=== PATIENT | female | born 1985 | race Caucasian/White ===

== ENCOUNTER 2025-08-11 07:32 | Outpatient (AMB) | payer OTHER, SELFPAY ==
--- OUTSIDE RECORDS SUMMARY | 2025-08-11 07:34 | XMS_ITS | Clinical Summary ---
Author Organization [address] Address [address] [place] [phone] Phone Care Team Providers Care Test Hole Driller Name Role Phone Candi Galindo MD Primary Care Provider [phone] Allergies No known active allergies Medications cetirizine (ZyrTEC) 10 mg tablet Take 1 tablet by mouth daily for 360 days. 09/18/2021 Active Active Problems Problem Noted Date Diagnosed Date Prediabetes 09/18/2021 Allergic rhinitis 09/18/2021 Hyperlipidemia 12/05/2017 Encounters Date Type Department Care Team Description 05/21/2025 Lab Requisition [facility] - Main Lab [address] [facility] [place] [address] Gilmer Pimentel MD Encounter for gynecological examination (general) (routine) without abnormal findings from Last 3 Months Immunizations Name Administration Dates Next Due Influenza Quadravalent, MDCK , 0.5ml, preservative free (Flucelvax) 6mo and older 10/22/2023,09/18/2021,02/08/2021 Influenza trivalent, with pr eservative (Fluzone; Afluria) 6mo and older 08/28/2022 Moderna (age 6mo & older) Bi valent, COVID-19, 0.5 mL or 0.25 mL dosage 08/28/2022 Tdap Tetanus diptheria acell ular pertussis (Boostrix; Adacel) 7yo and older 02/08/2021 Surgical History Surgery Date Site/Laterality Comments HERNIA REPAIR PROCEDURE: MO REPAIR FIRST ABDOMINAL WALL HERNIA HYSTERECTOMY PROCEDURE: HISTORICAL HYSTERECTOMY SECTION 1998 and 2002 PROCEDURE: MO DELIVERY ONLY Medical History Medical History Date Comments Allergic rhinitis 09/18/2021 DX:Allergic rh initis Prediabetes 09/18/2021 DX:Prediabetes Family History Medical History Relation Name Comments Breast cancer Aunt great aunt, alanis malhotra in 30s Other: alive and well Father Cervical cancer Mother and HIV Diabetes Paternal Grandmother Brain cancer Sister Relation Name Status Comments Aunt Alive Daughter 1 Alive Daughter 2 Alive Father Alive Maternal Grandfather Alive Maternal Grandmother Mother Paternal Grandfather Alive Paternal Grandmother Sister Social History Tobacco Use Types Packs/Day Years Used Date Smoking Tobacco: Every Day Cigarettes 0.3 29.7 Started: 11/25/1995 Smokeless Tobacco: Never Alcohol Use Standard Drinks/Week Comments Yes 0 (1 standard drink = 0.6 oz pur e alcohol) Comments Unknown Sex and Gender Information Value Date Recorded Sex Assigned at Not on file Legal Sex Female 3:10 PM EST Gender Identity Not on file Sexual Orientation Not on file Obstetrics History Last Filed Vital Signs Vital Sign Reading Time Taken Comments Blood Pressure 108/70 11/20/2023 11:30 AM EST Pulse 72 11/20/2023 11:30 AM EST Temperature - - Respiratory Rate - - Oxygen Saturation - - Inhaled Oxygen Concentration - - Weight 84.4 kg (186 lb) 11/20/2023 11:30 AM EST Height 149.9 cm (4' 11 ) 11/20/2023 11:30 AM EST Body Mass Index 37.57 11/20/2023 11:30 AM EST Plan of Treatment Health Maintenance Due Date Last Done Comments Breast Cancer Screening 1983 Hepatitis B Vaccines (1 of 3 - 19+ 3-dose series) 2002 Pneumococcal Vaccine: Pediatrics (0 to 5 Years) and At-Risk Patients (6 to 49 Years) (1 of 2 - PCV) 2002 Hepatitis C Screening 10/24/2022 Social Influencers of Health Screening 10/24/2022 Depression Screening 11/25/2024 COVID-19 Vaccine (2024- season) 2025 08/28/2022, 02/14/2022, 09/18/2021 Influenza Vaccine (#1) 2025 , 08/28/2022, 09/18/2021, Additional history exists Cholesterol Screening (Lipid Panel) 07/15/2028 07/15/2023 Cervical Cancer Screening: HPV 05/20/2030 05/20/2025, 05/20/2025 DTaP,Tdap,and Td Vaccines (2 - Td or Tdap) 02/08/2031 02/08/2021 HIV Screening Completed 05/14/2022 HIB Vaccines Aged Out No longer eligi ble based on patient's age to complete this topic HPV Vaccines Aged Out No longer eligi ble based on patient's age to complete this topic Hepatitis A Vaccines Aged Out No long er eligible based on patient's age to complete this topic IPV Vaccines Aged Out No longer eligi ble based on patient's age to complete this topic MMR Vaccines Aged Out No longer eligi ble based on patient's age to complete this topic Meningococcal ACWY Vaccine Aged Out N o longer eligible based on patient's age to complete this topic Meningococcal B Vaccine Aged Out No l onger eligible based on patient's age to complete this topic RSV Immunization Patients Under 20 months Aged Out No longer eligible based on patient's age to complete this topic Varicella Vaccines Aged Out No longer eligible based on patient's age to complete this topic Procedures Procedure Name Priority Date/Time Associated Diagnosis Comments PAP SMEAR Routine 05/20/2025 12:00 PM EDT Encounter for gynecological examination (general) (routine) without abnormal findings HPV GENOTYPE Routine 05/20/2025 12:00 PM EDT Encounter for gynecological examination (general) (routine) without abnormal findings HPV WITH REFLEX GENOTYPE Routine 05/20/2025 12:00 PM EDT Encounter for gynecological examination (general) (routine) without abnormal findings LIPID PANEL Routine 07/15/2023 HM HIV SCREENING Routine 05/14/2022 from Last 3 Months or Most Recently Relevant to Health Maintenance Results * HPV genotype (05/20/2025 12:00 PM EDT) HPV Type 16 Negative Negative LAB MICROBIOLOGY METHOD 06/01/2025 1:57 PM EDT [facility] HPV Type 18/45 Negative Negative LAB MICROBIOLOGY METHOD 06/01/2025 1:57 PM EDT [facility] HPV Type 16,18, and others Valid LAB MICROBIOLOGY METHOD 06/01/2025 1:57 PM EDT [facility] Brushing/Spatula Cervix uteri structure / Unknown 05/20/2025 12:00 PM EDT 05/25/2025 1:41 PM EDT Gilmer Pimentel MD LAB MOLECULAR DIAGNOSTICS [place]EN [place] Final Result [facility] [address] [place] [address], [place] [phone] * (ABNORMAL) HPV with reflex genotype (05/20/2025 12:00 PM EDT) HPV Positive( A) Negative LAB MICROBIOLOGY METHOD 05/27/2025 5:23 PM EDT [facility] Brushing/Spatula Cervix uteri structure / Unknown 05/20/2025 12:00 PM EDT 05/25/2025 1:41 PM EDT Gilmer Pimentel MD LAB MOLECULAR DIAGNOSTICS [place] Final Result [facility] [address] [place] [address], [place] [phone] * (ABNORMAL) Pap smear (05/20/2025 12:00 PM EDT) Interpretation Atypical squamous cells of undetermined significance(A) 05/25/2025 1:41 PM EDT [facility] General Categorization Epithelial cell abnormality, see interpretation 05/25/2025 1:41 PM EDT [facility] Specimen Adequacy Satisfactory for evaluation, endocervical/tra nsformation zone component absent 05/25/2025 1:41 PM EDT [facility] Pap Methodology Liquid Based Pap Test 05/25/2025 1:41 PM EDT [facility] Disclaimer The Pap test is a screening test which carries an inherent false negative rate. These test results should be correlated with the patient's clinical findings and history. This Pap test was processed using an automated screening system. Technical cytopathology services provided by [facility], at [address] [place] [address] (CLIA # [id number]/George Marie MD, Contact Person.) 05/25/2025 1:41 PM EDT [facility] Console Pap Interpretation Reported 05/25/2025 1:41 PM EDT [facility] Brushing/Spatula Cervix uteri structure / Unknown 05/20/2025 12:00 PM EDT 05/21/2025 6:38 AM EDT Gilmer Pimentel MD LAB CYTOLOGY ORDERABLES Final Result [facility] [address] [place] [address], * (ABNORMAL) Lipid panel (07/15/2023) Pathologist [facility] LDL/HDL Ratio 7(A) 0 - 4 Triglycerides 356(A) 0 - 150 mg/dL Cholesterol 285(A) 0 - 200 mg/dL HDL 41 >=40 mg/dL LDL Cholesterol 173(A) 0 - 100 mg/dL Blood Venous blood specimen / Unknown Angeline Sherwood MD LAB BLOOD ORDERABLES Caroline l Result * Hm HIV Screening (05/14/2022) Pathologist [facility] HIV Screening abstracted Angeline Sherwood MD HEALTH MAINTENANCE Final Result from Last 3 Months or Most Recently Relevant to Health Maintenance Insurance [facility] [employer] PL[employer] Care Teams Test Hole Driller Relationship Specialty Start Date End Date Candi Galindo MD [address] [place] [phone] PCP - General Internal Medicine 08/18/21
--- OUTSIDE RECORDS SUMMARY | 2025-08-11 07:34 | XMS_ITS | Encounter Summary ---
Author Organization [facility] Address [address] [place] [address] Care Team Providers Care Assembler And Tester Electronics Name Role Phone Candi Galindo MD Primary Care Provider [phone] Encounter Details Date Type Department Care Team (Latest Contact Info) Description 05/21/[address] [facility] - Main Lab 299 [facility] [place] [phone] Gilmer Pimentel MD [address] [address] Encounter for gynecological examination (general) (routine) without abnormal findings Social History Tobacco Use Types Packs/Day Years [...] on file Sexual Orientation Not on file documented as of this encounter Plan of Treatment Not on file documented as of this encounter Procedures Procedure Name Priority Date/Time Associated Diagnosis Comments HPV GENOTYPE Routine 05/20/2025 12:00 PM EDT Encounter for gynecological examination (general) (routine) without abnormal findings HPV WITH REFLEX GENOTYPE Routine 05/20/2025 12:00 PM EDT Encounter for gynecological examination (general) (routine) without abnormal findings PAP SMEAR Routine 05/20/2025 12:00 PM EDT Encounter for gynecological examination (general) (routine) without abnormal findings documented in this encounter Results * HPV genotype (05/20/2025 12:00 PM EDT) HPV Type 16 Negative Negative LAB MICROBIOLOGY METHOD 06/01/2025 1:57 PM EDT [facility] HPV Type 18/45 Negative Negative LAB MICROBIOLOGY METHOD 06/01/2025 1:57 PM EDT [facility] HPV Type 16,18, and others Valid LAB MICROBIOLOGY METHOD 06/01/2025 1:57 PM EDT [facility] Brushing/Spatula Cervix uteri structure / Unknown 05/20/2025 12:00 PM EDT 05/25/2025 1:41 PM EDT us Gilmer Pimentel MD LAB MOLECULAR DIAGNOSTICS LEN [place]INTER[place] Final Result Performing Organization Address City/[facility]/ZIP Co de Phone Number [facility] [address] [place] [address], [place] [phone] * (ABNORMAL) HPV with reflex genotype (05/20/2025 12:00 PM EDT) HPV Positive( A) Negative LAB MICROBIOLOGY METHOD 05/27/2025 5:23 PM EDT [facility] Brushing/Spatula Cervix uteri structure / Unknown 05/20/2025 12:00 PM EDT 05/25/2025 1:41 PM EDT us Gilmer Pimentel MD LAB MOLECULAR DIAGNOSTICS LEN [place] Final Result [facility] [address] [place] [address], [place] [phone] * (ABNORMAL) Pap smear (05/20/2025 12:00 PM EDT) Interpretation Atypical squamous cells of undetermined significance(A) 05/25/2025 1:41 PM EDT [facility] General Categorization Epithelial cell abnormality, see interpretation 05/25/2025 1:41 PM EDT [facility] Specimen Adequacy Satisfactory for evaluation, endocervical/tra nsformation zone component absent 05/25/2025 1:41 PM EDT [facility] Pap Methodology Liquid Based Pap Test 05/25/2025 1:41 PM EDT [facility] Disclaimer The Pap test is a screening test which carries an inherent false negative rate. These test results should be correlated with the patient's clinical findings and history. This Pap test was processed using an automated screening system. Technical cytopathology services provided by [facility], at [address] [place] [address] (CLIA # [id number]/George Marie MD, Surgical Services Assistant.) 05/25/2025 1:41 PM EDT [facility] Console Pap Interpretation Reported 05/25/2025 1:41 PM EDT [facility] Brushing/Spatula Cervix uteri structure / Unknown 05/20/2025 12:00 PM EDT 05/21/2025 6:38 AM EDT us Gilmer Pimentel MD LAB CYTOLOGY ORDERABLES Final Result [facility] [address] [place] [address], documented in this encounter Visit Diagnoses Diagnosis Encounter for gynecological examination (general) (routine) without abnormal findings documented in this encounter Care Teams Assembler And Tester Electronics Relationship Specialty Start Date End Date Candi Galindo MD [address] [place] [address] PCP - General Internal Medicine 08/18/21 documented as of this encounter
--- OUTSIDE RECORDS SUMMARY | 2025-08-11 07:34 | XMS_ITS | Encounter Summary ---
Author Organization [facility] Address [address] [place] [address] Care Team Providers Care Form Grader Operator Name Role Phone Candi Galindo MD Primary Care Provider [phone] Encounter Details Date Type Department Care Team (Latest Contact Info) Description 05/03/2025 Lab Requisition [facility] - Main Lab [address] [facility] [place] [phone] Gilmer Pimentel MD 299 [facility] [address] [place] [phone] Encounter for screening for infections with a predominantly sexual mode of transmission; Acute vaginitis Social History Tobacco Use Types Packs/Day Years [...] Procedure Name Priority Date/Time Associated Diagnosis Comments VAGINITIS PATHOGENS BY PCR Routine 05/03/2025 12:00 AM EDT Encounter for screening for infections with a predominantly sexual mode of transmission Acute vaginitis CHLAMYDIA TRACHOMATIS AND NEISSERIA GONORRHOEAE PCR Routine 05/03/2025 12:00 AM EDT Encounter for screening for infections with a predominantly sexual mode of transmission Acute vaginitis documented in this encounter Results * (ABNORMAL) Vaginitis pathogens molecular study (05/03/2025 12:00 AM EDT) Trichomonas vaginalis Negative Negative 05/04/2025 9:30 AM EDT [facility] Gardnerella vaginalis Positive(A) Negative 05/04/2025 9:30 AM EDT [facility] Carissa Species Negative Negative 9:30 AM EDT [facility] Swab Vaginal structure / Unknown 05/03/2025 05/03/2025 6:10 PM EDT us Gilmer Pimentel MD LAB MICROBIOLOGY - GENERAL ORD ERABLES Final Result [facility] [address] [place] [address], [place] [phone] * Chlamydia trachomatis and Neisseria gonorrhoeae molecular study (05/03/2025 12:00 AM EDT) Neisseria gonorrhoeae PCR Negative Negative LAB MOLECULAR DIAGNOSTICS METHOD 05/04/2025 9:19 AM EDT [facility] Chlamydia trachomatis PCR Negative Negative LAB MOLECULAR DIAGNOSTICS METHOD 05/04/2025 9:19 AM EDT [facility] Swab Cervix uteri structure / Unknown 05/03/2025 05/03/2025 6:10 PM EDT us Gilmer Pimentel MD LAB MICROBIOLOGY - GENERAL ORD ERABLES Final Result [facility] [address] [place] [address], [place] [phone] documented in this encounter Visit Diagnoses Diagnosis Encounter for screening for infections with a predominantly sexual mode of transmission Acute vaginitis Unspecified vaginitis and vulvovaginitis documented in this encounter Care Teams Form Grader Operator Relationship Specialty Start Date End Date Candi Galindo MD [address] [place] [phone] PCP - General Internal Medicine 08/18/21 documented as of this encounter
--- OUTSIDE RECORDS SUMMARY | 2025-08-11 07:34 | XMS_ITS ---
Author Name [facility] Organization Unknown Care Team Organization Name Specialty Phone Email Start Date End Da [facility] Candi Galindo Primary Care 10/02/2022 4
[2025-08-11 07:37] VITALS: BP 128/78; PULSE 70; O2SAT 98; BMI 36.6
--- NOTE | 2025-08-11 07:37 | A.OFFPC_ITS ---
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 Accompanied by: Self / Same As Patient Allergies No Known Allergies Allergy (Verified 08/11/25 07:59) Medication List - Last Reconciled 08/11/25 by Margie Anderson MD atorvastatin (Lipitor) 40 mg PO DAILY coQ10 (ubiquinol) (Qunol Popeye CoQ10) 100 mg PO DAILY empagliflozin (Jardiance) 25 mg PO DAILY icosapent ethyl 2 grams PO BID thiamine HCl (vitamin B1) 100 mg PO BID Tobacco use date assessed: 08/11/25 Dental Screening Dental Screen Date: 08/11/25 Did you have a dental visit in the last 12 months?: Yes Did you have a dental problem in the last 6 months where you did not have access to dental care?: No Was dental information given to patient?: Patient has dentist HPI HPI Comments History of Present Illness Details The patient is a 39-year-old female presenting with the purpose of establishing care. She has a history of pure hypercholesterolemia, for which she is on atorvastatin 40 mg. Additionally, she has been diagnosed with fatty liver and is taking vitamin B1 as part of her management plan. The patient also has impaired glucose tolerance and is currently on Jardiance 25 mg. She has polycystic ovarian syndrome, and her ovarian cysts are monitored by her juvenile detention officer. She underwent a hysterectomy, which is part of her medical history. In terms of preventative care, she had a colonoscopy last year, which returned normal results. She also had a mammogram this year, which showed dense breast tissue, and she is scheduled for a follow-up ultrasound. The patient is obese with a BMI of 36.6 and has a history of low vitamin D levels, which will be checked during her upcoming labs. She smokes approximately six cigarettes a day and has an appointment with weight management to address her obesity. [facility] Surgical History (Updated 08/11/25 @ 08:09 by Margie Anderson MD) H/O midurethral sling procedure H/O colonoscopy H/O LEEP History of total abdominal hysterectomy Previous section H/O hernia repair Family History Father Hyperlipidemia Mother HIV (human immunodeficiency virus infection) Diabetes Daughter No problems noted. Daughter No problems noted. Son No problems noted. 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 1. Little interest or pleasure in doing things: not at all 2. Feeling down, depressed, or hopeless: not at all 3. Trouble falling or staying asleep, or sleeping too much: not at all 4. Feeling tired or having little energy: not at all 5. Poor appetite or overeating: not at all 6. Feeling bad about yourself - or that you are a failure or have let yourself or your family down: not at all 7. Trouble concentrating on things, such as reading the newspaper or watching television: not at all 8. Moving or speaking so slowly that other people could have noticed. Or the opposite - being so fidgety or restless that you have been moving around a lot more than usual: not at all 9. Thoughts that you would be better off or of hurting yourself in some way: not at all Total score: 0 Depression Screening Interpretation: Negative Depression Screening Done: Yes 64849 - PHQ-9 Billing: Yes Source: Developed by Drs. Constantino Cazares, Merary Renteria, Moshe Oreilly and colleagues, with an educational chalo from [employer]. Thrive Questionnaire Date Thrive assessed: 08/11/25 I am a: Patient What is your living situation today?: I have a steady place to live Within the past 12 months, did the food you bought not last and you didn't have the money to get more?: Never true Within the past 12 months, did you worry whether your food would run out before you got money to buy more?: Never true Do you have trouble paying for medicines?: No Do you have trouble getting transportation to medical appointments?: No Do you have trouble paying your heating and electricity bill?: No Do you have trouble taking care of your child, family member or friend?: No Do you have trouble with day-to-day activities such as bathing, preparing meals, shopping, managing finances, etc.?: No Are you currently unemployed and looking for a job?: No Are you interested in more education?: No Currently or been in a relationship where the following occur: No concerns reported THRIVE Score: 0 AUDIT C Alcohol Use Questionnaire (AUDIT-C) 1. How often do you have a drink containing alcohol?: 2-3 times a week 2. How many drinks containing alcohol do you have on a typical day when you are drinking?: 3 or 4 3. How often do you have six or more drinks on one occasion?: Never Total Score: 4 NICOLE-7 AMB Questionnaire NICOLE-7 Date NICOLE - 7 assessed: 08/11/25 Feeling nervous, anxious, or on edge: 0 = Not at all Not being able to stop or control worryin = Not at all Worrying too much about different things: 0 = Not at all Trouble relaxin = Not at all Being so restless that it is hard to sit still: 0 = Not at all Becoming easily annoyed or irritable: 0 = Not at all Feeling afraid as if something awful might happen: 0 = Not at all Total NICOLE-7 score (0-4 normal; 5-9 mild; 10-14 moderate; 15-21 severe): 0 Source: Developed by Drs. Constantino Cazares, Merary Renteria, Moshe Oreilly and colleagues, with an educational chalo from [employer]. NICOLE-7 Assessment Billing NICOLE-7 Assessment Tool: NICOLE-7 Assessment 00838 Review of Systems Const All systems reviewed & are unremarkable except as noted in HPI and below Card Denies chest pain at rest, Denies chest pain with activity, Denies edema, Denies irregular heart rhythm, Denies claudication, Denies dyspnea, Denies dyspnea on exertion, Denies orthopnea, Denies paroxysmal nocturnal dyspnea and Denies slow heart rate Resp Denies cough, Denies dyspnea and Denies dyspnea on exertion GI Denies abdominal pain, Denies change in bowel habits, Denies excessive flatus, Denies nausea and Denies vomiting Physical exam (Primary Care) Vital Signs: Last Vital Signs Pulse 70 08/11/25 07:37 BP 128/78 08/11/25 07:37 Pulse Ox 98 08/11/25 07:37 Oxygen Delivery Method Room Air 08/11/25 07:37 BMI result Body Mass Index 36.6 BMI Assessment/Plan discussion: High BMI High, discussed plan: lifestyle, weight reduction, dietary and physical activity Tobacco/Smoking Status: Tobacco use Status Tobacco use date assessed 08/11/25 08/11/25 07:51 Patient Tobacco Use Status Current everyday Tobacco 08/11/25 07:51 Tobacco use type Cigarette 08/11/25 07:51 e-Cigarette/Vaping Use Never Used 08/11/25 07:51 Are you ready to quit: No Tobacco cessation counseling provided: Yes Items discussed: Nicotine replacement Number of minutes spent counselin CPT code: Less than 3 minutes PHQ-9: PHQ-9 Score PHQ-9: Total score 0 08/11/25 07:51 Depression Screening Interpretation: Negative Thrive Assessment: Date of Thrive Assessment Date Thrive assessed 08/11/25 08/11/25 07:51 Currently or been in a relationship where the following occur: No concerns reported Resp Effort & Inspection: normal respiratory effort Auscultation: clear to auscultation bilaterally Cardio Jugular venous distension: no JVD Rate: regular rate Rhythm: regular rhythm Heart sounds: S1 normal heart sound present and S2 normal heart sound present Extrem General: Yes full ROM Coding Level of Care Code New Pt Level 4 (29079) Complex EM visit Add On G2211 Diagnoses Familial hyperlipidemia E78.49 Hypovitaminosis D E55.9 Impaired glucose tolerance R73.02 PCOS (polycystic ovarian syndrome) E28.2 Fatty liver K76.0 BMI 36.0-36.9,adult Z68.36 Additional Codes PHQ-9 - 75644 - PHQ-9 Billing: Yes ([id number]) NICOLE-7 Assessment Billing - NICOLE-7 Assessment Tool: NICOLE-7 Assessment 46334 ([id number]) Time Spent (min) 26 Assessment & Plan Assessment & Plan (1) Familial hyperlipidemia: Comment: Apo B positive Code(s): E78.49 - Other hyperlipidemia Category: Medical (2) Hypovitaminosis D: Code(s): E55.9 - Vitamin D deficiency, unspecified Category: Medical (3) Impaired glucose tolerance: Code(s): R73.02 - Impaired glucose tolerance (oral) Category: Medical (4) PCOS (polycystic ovarian syndrome): Code(s): E28.2 - Polycystic ovarian syndrome Category: Medical (5) Fatty liver: Code(s): K76.0 - Fatty (change of) liver, not elsewhere classified Category: Medical (6) BMI 36.0-36.9,adult: Code(s): Z68.36 - Body mass index [BMI] 36.0-36.9, adult Category: Medical Plan Plan 1. Pure Hypercholesterolemia The patient is currently on atorvastatin 40 mg for management of her hypercholesterolemia. 2. Fatty Liver The patient is taking vitamin B1 as part of her management for fatty liver. 3. Impaired Glucose Tolerance The patient is on Jardiance 25 mg to manage her impaired glucose tolerance. 4. Polycystic Ovarian Syndrome The patient's ovarian cysts are being monitored by her juvenile detention officer. 5. Obesity The patient has an appointment with weight management to address her obesity. 6. History Of Low Vitamin D The patient's vitamin D levels will be checked during her upcoming labs. Orders: Orders Comprehensive [place]. Panel Fast Today R73.02 - Impaired glucose tolerance (oral) Complete Blood Count Auto Diff Today D64.9 - Anemia, unspecified, E66.01 - Morbid (severe) obesity due to excess calories, Z68.36 - Body mass index [BMI] 36.0-36.9, adult Thyroid Stimulating Hormone Today E66.01 - Morbid (severe) obesity due to excess calories, Z68.36 - Body mass index [BMI] 36.0-36.9, adult Lipid Panel Today E78.5 - Hyperlipidemia, unspecified Vitamin D 25-OH Total Today E55.9 - Vitamin D deficiency, unspecified Referrals Medical Weight Management Referral Z68.36 - Body mass index [BMI] 36.0-36.9, adult
== END 2025-08-11 08:19 | disposition home or self-care (01) ==
PROVIDERS: PCP Nurse Practitioner Family; Visit Provider Internal Medicine
DX: E78.49 Other hyperlipidemia (principal); E55.9 Vitamin D deficiency, unspecified; R73.02 Impaired glucose tolerance (oral); E28.2 Polycystic ovarian syndrome; K76.0 Fatty (change of) liver, not elsewhere classified; Z68.36 Body mass index [BMI] 36.0-36.9, adult

== ENCOUNTER → 2025-08-11 07:32 | Outpatient (BNVA) | payer OTHER, SELFPAY | PROVIDERS: PCP Nurse Practitioner Family; Visit Provider Internal Medicine | DX: R73.02 Impaired glucose tolerance (oral) (principal); E55.9 Vitamin D deficiency, unspecified; E66.9 Obesity, unspecified; E78.49 Other hyperlipidemia; E28.2 Polycystic ovarian syndrome; K76.0 Fatty (change of) liver, not elsewhere classified; F17.210 Nicotine dependence, cigarettes, uncomplicated; D64.9 Anemia, unspecified; E66.01 Morbid (severe) obesity due to excess calories; E78.5 Hyperlipidemia, unspecified; Z68.36 Body mass index [BMI] 36.0-36.9, adult; Z79.899 Other long term (current) drug therapy | CPT/HCPCS: 96127; 99202 ==

== ENCOUNTER 2025-08-20 08:03 | Outpatient (AMB) | payer OTHER, SELFPAY ==
--- NOTE | 2025-08-20 12:23 | A.OFFVIS_ITS ---
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 Allergies No Known Allergies Allergy (Verified 08/20/25 12:23) Medication List - Last Reconciled 08/20/25 by Deandre Barron MD atorvastatin (Lipitor) 40 mg PO DAILY coQ10 (ubiquinol) (Qunol Popeye CoQ10) 100 mg PO DAILY empagliflozin (Jardiance) 25 mg PO DAILY icosapent ethyl 2 grams PO BID thiamine HCl (vitamin B1) 100 mg PO BID HPI HPI 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: Details: Start time: 12.21pm, End time: 1.06pm ?I spent 40 minutes speaking with the patient on the phone plus an additional 5 minutes reviewing and updating records for a total of 45 minutes HPI Comments Details: Previous weight loss efforts: Ozempic, Mounjaro, Zepbound: for 2 months each without weight loss, Wegovy for 3 months: no weight loss) Wakes up: 8am, Sleeps: 12am Breakfast: skips Lunch: 11am (banana, soup, bagel) Dinner: 5pm (rice, chicken pork, pasta, vegetables) Snacks: none Exercise: none Beverages: Coffee: (2 cups/d with sugar and milk), Tea: none, Soda: none, Juice: none, ETOH: 2/week (6-8 beers and some Tequila) [facility] Medical History (Updated 08/20/25 @ 12:45 by Deandre Barron MD) Hyperlipidemia Non-insulin dependent type 2 diabetes mellitus BMI 37.0-37.9, adult Obesity Surgical History (Updated 08/16/25 @ 11:36 by Hannah Vázquez CMA) H/O midurethral sling procedure H/O colonoscopy H/O LEEP History of total abdominal hysterectomy Previous section H/O hernia repair Family History Father Hyperlipidemia Mother HIV (human immunodeficiency virus infection) Diabetes Daughter No problems noted. Daughter No problems noted. Son No problems noted. 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 Current occupational exposures/hazards: No Cognitive needs: No Hearing needs: No Vision needs: No Telehealth Telehealth Telehealth Platform: Telephone Location of provider rendering services: practice address Location of patient: address on file Patient Identification confirmed using: Name, : Yes Telehealth method: voice only Patient verbally consented to treatment: Yes Patient verbally consented to billing insurance company: Yes Patient informed of any privacy concerns related to visit: Yes Minutes spent on Phone/Video with Pt.: 45 Assessment & Plan Assessment & Plan (1) Obesity: Code(s): E66.9 - Obesity, unspecified Category: Medical Qualifiers: Obesity type: due to excess calories Obesity classification: adult class 2 (BMI 35 - 39.9) Serious obesity comorbidity presence: with serious comorbidity Body mass index: BMI 37.0-37.9 Qualified Code(s): E66.812 - Obesity, class 2; E66.01 - Morbid (severe) obesity due to excess calories; Z68.37 - Body mass index [BMI] 37.0-37.9, adult Plan: 1.? Plan for lap sleeve gastrectomy. If diaphragmatic or ventral hernias are present at time of surgery, these will be repaired laparoscopically as well. I emphasized the importance of close follow-up, adherence to instructions and good communication. The surgery does not replace the need to change your lifestlyle which is the cause of the obesity problem. The surgery provides the motivation to try again to change your lifestyle, it reduces the appetite and make the transition to a better lifestyle easier and doubles the amount of weight you would lose compared to doing the lifestyle change without the surgery. You will need to be on a liquid diet with protein shakes for 2 weeks before surgery to maximize weight loss and boost your nutritional status to recover better from surgery and also for the first two weeks after surgery to let the stomach heal before we introduce other foods. After the first 2 weeks we will introduce protein bars and soft foods like scrambled eggs, cottage cheese and yogurt and after the 6th week will introduce meat, fish and cooked vegetables in small amounts. Over time you should be able to eat everything in small amounts. Side effects like nausea, vomiting, heartburn or abdominal pain are not common in the practice unless you are not following in the practice. This operation requires lifetime commitment to following in our practice and communication with me. You will much less weight and experience side effects if you don?t communicate or not following in the practice. Complications are rare and in our practice is about 1/10 of the national average. However, you can develop bleeding that may require transfusion (hasn?t happened for year in the practice), you may from complications (we did not have any deaths in the practice) and infections. Infections are usually a result of breakdown in communication or not understanding or following directions correctly. They are difficult to treat, they can happen during the first 6 weeks, they may require to be in the hospital for weeks or even months, not being able to eat by mouth and you may have drains and surgeries to try and correct the issue. Other risks and complications include possible conversion to an open procedure, leaks, small bowel obstruction, blood clots, cardiac, or pulmonary complications, as longterm complications such as ulcers, insufficient weight loss and vitamin deficiencies. 2. Nutritional counseling. Start with one premade PREMIER protein (buy at [employer] or [employer]) shake (mix 4oz of Premier mixed with 4oz low fat unsweetened almond milk each) at 9am-11am, one protein bar (Fit Crunch protein bar, buy at [employer], or [employer]) at 12pm-2pm, another premade PREMIER protein shake (mix 4oz of Premier mixed with 4oz low fat unsweetened almond milk each) at 3pm-5pm, dinner at 6pm (8 forks of protein and 8 forks of salad/vegetables) and one more [employer] protein bar at 8pm-10pm. If hungry you may have another HALF protein bar at 11pm to midnight. So you do 2 protein shakes, 2 to 2.5 protein bars and one meal per day Meal to include lean meat (beef, fish, pork, turkey, chicken), or georgian yogurt, or egg whites, or beans with a salad with olive oil and fruits (berries, pears, apples, kiwi). Avoid salt, breads, potatoes, rice, pasta, desserts. 3. Each shake would be drunk slowly, like coffee in a period of 2 hours. 4. Cut each bar in 4 pieces and eat each piece in 30min ?to make each bar last 2 hours. 5. I emphasized the importance of measuring accurately the food portion and measure it when serving the food in plate 6. The meal portions include 8 full-size forks of meat and 8 full-size forks of salad. You always eat the meat portion but you can replace up to 4 forks for salad/vegetables with rice, potatoes or pasta, or a fruit ?if you like. The less you do it the better weight loss will be. 7. One full-size fork is what it can be scooped on the fork without falling aside and not what can be bit with the fork. Use regular forks like those you find in a typical restaurant. 8.? Please buy the body composition scale we discussed and send me weight measurements as soon as possible and then once a week. Always include your diet and exercise plan. 9. Start walking outside daily, tracking calories with a goal of 300 calories per day, daily. Goal is to burn 2000 calories per week on exercise, which means either 300 calories daily, or 400 calories 5 days per week, or 500 calories 4 days per week, or 650 calories 3 days per week. 10. The best choice would be to purchase a stationary bike at home that can track calories. If you get one, please start stationary bike at a resistance level of 4.0 Increase level by 1.0 every 3 min to a max level of 10.0. Stay at this level for 3 min and then return to level 4.0 and repeat same steps until 300 calories are burned. Goal is to burn 2000 calories per week on exercise 11. Goal is to lose at least 1.5-2lbs per week 12. Goal to lose 10% of your weight before surgery, which is about 18lbs. Ultimate weight goal: 168lbs before surgery 13. Please follow the diet plan exactly without any change. If you don't like something about the plan or you feel hungry you need to communicate with me so I can help you revise the plan. You should not change the plan yourself 14. To be scheduled for EGD to assess the stomach's anatomy. The possibility of biopsies was discussed. Patient needs to avoid use of NSAIDs and aspirin for 1 week prior to EGD. You must be on liquids only the day before your endoscopy. Risks of perforation and bleeding was discussed with the patient. This will be an outpatient procedure with IV sedation. Orders: Orders Insulin Today E11.9 - Type 2 diabetes mellitus without complications, E28.2 - Polycystic ovarian syndrome, E66.9 - Obesity, unspecified, E78.5 - Hyperlipidemia, unspecified, Z68.37 - Body mass index [BMI] 37.0-37.9, adult H Pylori Breath Test Today E11.9 - Type 2 diabetes mellitus without complications, E28.2 - Polycystic ovarian syndrome, E66.9 - Obesity, unspecified, E78.5 - Hyperlipidemia, unspecified, Z68.37 - Body mass index [BMI] 37.0-37.9, adult Complete Blood Count Auto Diff Today E11.9 - Type 2 diabetes mellitus without complications, E28.2 - Polycystic ovarian syndrome, E66.9 - Obesity, unspecified, E78.5 - Hyperlipidemia, unspecified, Z68.37 - Body mass index [BMI] 37.0-37.9, adult Lipid Panel Today E11.9 - Type 2 diabetes mellitus without complications, E28.2 - Polycystic ovarian syndrome, E66.9 - Obesity, unspecified, E78.5 - Hyperlipidemia, unspecified, Z68.37 - Body mass index [BMI] 37.0-37.9, adult Vitamin B1 Today E11.9 - Type 2 diabetes mellitus without complications, E28.2 - Polycystic ovarian syndrome, E66.9 - Obesity, unspecified, E78.5 - Hyperlipidemia, unspecified, Z68.37 - Body mass index [BMI] 37.0-37.9, adult Ferritin Today E11.9 - Type 2 diabetes mellitus without complications, E28.2 - Polycystic ovarian syndrome, E66.9 - Obesity, unspecified, E78.5 - Hyperlipidemia, unspecified, Z68.37 - Body mass index [BMI] 37.0-37.9, adult Vitamin D 25-OH Total Today E11.9 - Type 2 diabetes mellitus without complications, E28.2 - Polycystic ovarian syndrome, E66.9 - Obesity, unspecified, E78.5 - Hyperlipidemia, unspecified, Z68.37 - Body mass index [BMI] 37.0-37.9, adult XR chest 2V Today E11.9 - Type 2 diabetes mellitus without complications, E28.2 - Polycystic ovarian syndrome, E66.9 - Obesity, unspecified, E78.5 - Hyperlipidemia, unspecified, Z68.37 - Body mass index [BMI] 37.0-37.9, adult ECG 12 lead EKG Today E11.9 - Type 2 diabetes mellitus without complications, E28.2 - Polycystic ovarian syndrome, E66.9 - Obesity, unspecified, E78.5 - Hyperlipidemia, unspecified, Z68.37 - Body mass index [BMI] 37.0-37.9, adult FL upper GI w air Today E11.9 - Type 2 diabetes mellitus without complications, E28.2 - Polycystic ovarian syndrome, E66.9 - Obesity, unspecified, E78.5 - Hyperlipidemia, unspecified, Z68.37 - Body mass index [BMI] 37.0-37.9, adult Hemoglobin A1c Today E11.9 - Type 2 diabetes mellitus without complications, E28.2 - Polycystic ovarian syndrome, E66.9 - Obesity, unspecified, E78.5 - Hyperlipidemia, unspecified, Z68.37 - Body mass index [BMI] 37.0-37.9, adult IRON PROFILE Today E11.9 - Type 2 diabetes mellitus without complications, E28.2 - Polycystic ovarian syndrome, E66.9 - Obesity, unspecified, E78.5 - Hyperlipidemia, unspecified, Z68.37 - Body mass index [BMI] 37.0-37.9, adult Comprehensive Met. Panel Today E11.9 - Type 2 diabetes mellitus without complications, E28.2 - Polycystic ovarian syndrome, E66.9 - Obesity, unspecified, E78.5 - Hyperlipidemia, unspecified, Z68.37 - Body mass index [BMI] 37.0-37.9, adult Vitamin B12 and Folate Today E11.9 - Type 2 diabetes mellitus without complications, E28.2 - Polycystic ovarian syndrome, E66.9 - Obesity, unspecified, E78.5 - Hyperlipidemia, unspecified, Z68.37 - Body mass index [BMI] 37.0-37.9, adult Zinc Today E11.9 - Type 2 diabetes mellitus without complications, E28.2 - Polycystic ovarian syndrome, E66.9 - Obesity, unspecified, E78.5 - Hyperlipidemia, unspecified, Z68.37 - Body mass index [BMI] 37.0-37.9, adult C Reactive Protein Today E11.9 - Type 2 diabetes mellitus without complications, E28.2 - Polycystic ovarian syndrome, E66.9 - Obesity, unspecified, E78.5 - Hyperlipidemia, unspecified, Z68.37 - Body mass index [BMI] 37.0-37.9, adult Vitamin A Today E11.9 - Type 2 diabetes mellitus without complications, E28.2 - Polycystic ovarian syndrome, E66.9 - Obesity, unspecified, E78.5 - Hyperlipidemia, unspecified, Z68.37 - Body mass index [BMI] 37.0-37.9, adult TSH reflex Free T4 Today E11.9 - Type 2 diabetes mellitus without complications, E28.2 - Polycystic ovarian syndrome, E66.9 - Obesity, unspe cified, E78.5 - Hyperlipidemia, unspecified, Z68.37 - Body mass index [BMI] 37.0-37.9, adult US abdomen comp w elastography Today E11.9 - Type 2 diabetes mellitus without complications, E28.2 - Polycystic ovarian syndrome, E66.9 - Obesity, unspecified, E78.5 - Hyperlipidemia, unspecified, Z68.37 - Body mass index [BMI] 37.0-37.9, adult Referrals Behavioral Health Referral E11.9 - Type 2 diabetes mellitus without complications, E28.2 - Polycystic ovarian syndrome, E66.9 - Obesity, unspecified, E78.5 - Hyperlipidemia, unspecified, Z68.37 - Body mass index [BMI] 37.0-37.9, adult Nutrition/Dietitian Referral E11.9 - Type 2 diabetes mellitus without complications, E28.2 - Polycystic ovarian syndrome, E66.9 - Obesity, unspecified, E78.5 - Hyperlipidemia, unspecified, Z68.37 - Body mass index [BMI] 37.0-37.9, adult
[2025-08-20 12:37] VITALS: BMI 37.0
== END 2025-08-20 13:07 | disposition home or self-care (01) ==
LOC: HO.HBS 08:03
PROVIDERS: PCP Internal Medicine; Visit Provider Surgery
DX: E66.9 Obesity, unspecified (principal); Z68.37 Body mass index [BMI] 37.0-37.9, adult
CPT/HCPCS: 98010

== ENCOUNTER 2025-08-24 10:29 | Outpatient (REF) | payer OTHER, SELFPAY ==
--- NOTE | ~2025-08-24 | XR_ITS ---
EXAMINATION: XR CHEST CLINICAL INFORMATION: E66.9 - Obesity, unspecified COMPARISON: September 08, 2018 TECHNIQUE: PA and lateral views. FINDINGS: No hyperinflation. No consolidation, pleural effusion or pneumothorax. Cardiomediastinal silhouette size is normal. Mild multilevel thoracic spondylosis. XR/XR chest 2V IMPRESSION: No acute airspace disease. Stable chest. Electronically signed by: Herminio Helms MD 08/24/2025 11:34 AM EDT
--- NOTE | 2025-08-24 10:46 | ECG_ITS ---
Test Reason : obesity Blood Pressure : */* mmHG Vent. Rate : 67 BPM Atrial Rate : 67 BPM P-R Int : 160 ms QRS Dur : 74 ms QT Int : 410 ms P-R-T Axes : 17 -2 1 degrees QTcB Int : 433 ms Normal sinus rhythm Minimal voltage criteria for LVH, may be normal variant ( R in aVL ) Borderline ECG No previous ECGs available Referred By: Deandre Barron Electronically Signed By: EH GUILLERMO
[2025-08-24 11:05] LABS: MANUAL DIFF FLAG NO
--- OUTSIDE RECORDS SUMMARY | 2025-08-24 11:41 | XMS_ITS | Encounter Summary ---
Author Organization [facility] Address [address] [place] [address] Care Team Providers Care Operations Support Representative Name Role Phone Candi Galindo MD Primary Care Provider [phone] Encounter Details Date Type Department Care Team (Latest Contact Info) Description 05/03/2025 Lab Requisition [facility] - Main Lab [address] [facility] [place] [place] [phone] Gilmer Pimentel MD 299 [facility] [address] [place] [phone] Encounter for screening for infections with a [...] vaginalis Negative Negative 05/04/2025 9:30 AM EDT [facility] Gardnerella vaginalis Positive(A) Negative 05/04/2025 9:30 AM EDT [facility] Carissa Species Negative Negative 9:30 AM EDT [facility] Swab Vaginal structure / Unknown 05/03/2025 05/03/2025 6:10 PM EDT us Gilmer Pimentel MD LAB MICROBIOLOGY - GENERAL ORD ERABLES Final Result [facility] [address] [place] [address], [place] [phone] * Chlamydia trachomatis and Neisseria gonorrhoeae molecular study (05/03/2025 12:00 AM EDT) Neisseria gonorrhoeae PCR Negative Negative LAB MOLECULAR DIAGNOSTICS METHOD 05/04/2025 9:19 AM EDT [facility] Chlamydia trachomatis PCR Negative Negative LAB MOLECULAR DIAGNOSTICS METHOD 05/04/2025 9:19 AM EDT [facility] Swab Cervix uteri structure / Unknown 05/03/2025 05/03/2025 6:10 PM EDT us Gilmer Pimentel MD LAB MICROBIOLOGY - GENERAL ORD ERABLES Final Result [facility] [address] [place] [address], [place] [phone] documented in this encounter Visit Diagnoses Diagnosis Encounter for screening for infections with a predominantly sexual mode of transmission Acute vaginitis Unspecified vaginitis and vulvovaginitis documented in this encounter Care Teams Operations Support Representative Relationship Specialty Start Date End Date Candi Galindo MD [address] [place] [phone] PCP - General Internal Medicine 08/18/21 documented as of this encounter
--- OUTSIDE RECORDS SUMMARY | 2025-08-24 11:41 | XMS_ITS | Encounter Summary ---
Author Organization [facility] Address [address] [place] [address] Care Team Providers Care Sports Attorney Name Role Phone Candi Galindo MD Primary Care Provider [phone] Encounter Details Date Type Department Care Team (Latest Contact Info) Description 05/21/2025 Lab Requisition [facility] - Main Lab [address] [facility] [place] [phone] Gilemr Pimentel MD [address] [phone] Encounter for gynecological examination (general) [...] LAB MICROBIOLOGY METHOD 06/01/2025 1:57 PM EDT [facility] HPV Type 18/45 Negative Negative LAB MICROBIOLOGY METHOD 06/01/2025 1:57 PM EDT [facility] HPV Type 16,18, and others Valid LAB MICROBIOLOGY METHOD 06/01/2025 1:57 PM EDT [facility] Brushing/Spatula Cervix uteri structure / Unknown 05/20/2025 12:00 PM EDT 05/25/2025 1:41 PM EDT us Gilmer Pimentel MD LAB MOLECULAR DIAGNOSTICS LEN WINTERS Final Result Performing Organization Address City/[facility]/ZIP Co de Phone Number [facility] [address] [place] [address], [place] [phone] * (ABNORMAL) HPV with reflex genotype (05/20/2025 12:00 PM EDT) HPV Positive( A) Negative LAB MICROBIOLOGY METHOD 05/27/2025 5:23 PM EDT [facility] Brushing/Spatula Cervix uteri structure / Unknown 05/20/2025 12:00 PM EDT 05/25/2025 1:41 PM EDT us Gilmer Pimentel MD LAB MOLECULAR DIAGNOSTICS LEN [place]INTER[place] Final Result [facility] [address] [place] [address], [place] [phone] * (ABNORMAL) Pap smear (05/20/2025 12:00 PM EDT) Interpretation Atypical squamous cells of undetermined significance(A) 05/25/2025 1:41 PM EDT [facility] General Categorization Epithelial cell abnormality, see interpretation 05/25/2025 1:41 PM EDT [facility] Specimen Adequacy Satisfactory for evaluation, endocervical/tra nsformation zone component absent 05/25/2025 1:41 PM EDT [facility] Pap Methodology Liquid Based Pap Test 05/25/2025 1:41 PM EDT [facility] Disclaimer The Pap test is a screening test which carries an inherent false negative rate. These test results should be correlated with the patient's clinical findings and history. This Pap test was processed using an automated screening system. Technical cytopathology services provided by [facility], at [address] [place] [id number] (CLIA # [id number]/George Marie MD, Mathematical Technician.) 05/25/2025 1:41 PM EDT [facility] Console Pap Interpretation Reported 05/25/2025 1:41 PM EDT [facility] Brushing/Spatula Cervix uteri structure / Unknown 05/20/2025 12:00 PM EDT 05/21/2025 6:38 AM EDT us Gilmer Pimentel MD LAB CYTOLOGY ORDERABLES Final Result [facility] [address] [place] [address], documented in this encounter Visit Diagnoses Diagnosis Encounter for gynecological examination (general) (routine) without abnormal findings documented in this encounter Care Teams Sports Attorney Relationship Specialty Start Date End Date Candi Galindo MD [address] [place] [phone] PCP - General Internal Medicine 08/18/21 documented as of this encounter
--- OUTSIDE RECORDS SUMMARY | 2025-08-24 11:41 | XMS_ITS | Clinical Summary ---
Author Organization [address] Address [address] [place] [phone] Phone Care Team Providers Care Licensed And Certified Midwife Name Role Phone Candi Galindo MD Primary Care Provider Allergies No known active allergies Medications cetirizine (ZyrTEC) 10 mg tablet Take 1 tablet by mouth daily for 360 days. 09/18/2021 Active Active Problems Problem Noted Date Diagnosed Date Prediabetes 09/18/2021 Allergic rhinitis 09/18/2021 Hyperlipidemia 12/05/2017 Immunizations Immunization Administration Dates Next Due Influenza Quadravalent, MDCK , 0.5ml, preservative free (Flucelvax) 6mo and older 10/22/2023,09/18/2021,02/08/2021 Influenza trivalent, with pr eservative (Fluzone; Afluria) 6mo and older 08/28/2022 Moderna (age 6mo & older) Bi valent, COVID-19, 0.5 mL or 0.25 mL dosage 08/28/2022 Tdap Tetanus diptheria acell ular pertussis (Boostrix; Adacel) 7yo and older 02/08/2021 Surgical History Surgery Date Site/Laterality Comments HERNIA REPAIR PROCEDURE: OK REPAIR FIRST ABDOMINAL WALL HERNIA HYSTERECTOMY PROCEDURE: HISTORICAL HYSTERECTOMY SECTION 1998 and 2002 PROCEDURE: OK DELIVERY ONLY Medical History Medical History Date Comments Allergic rhinitis 09/18/2021 DX:Allergic rh initis Prediabetes 09/18/2021 DX:Prediabetes Family History Medical History Relation Name Comments Breast cancer Aunt great aunt, alanis t in 30s Other: alive and well Father [...] Years) (1 of 2 - PCV) 2002 HPV Vaccines (1 - 3-dose SCDM series) 2010 Hepatitis C Screening 10/24/2022 Social Influencers of Health Screening 10/24/2022 Depression Screening 11/25/2024 COVID-19 Vaccine (2024- season) 2025 08/28/2022, 02/14/2022, 09/18/2021 Influenza Vaccine (#1) 2025 , 08/28/2022, 09/18/2021, Additional history exists Cholesterol Screening (Lipid Panel) 07/15/2028 07/15/2023 Cervical Cancer Screening: HPV 05/20/2030 05/20/2025, 05/20/2025 DTaP,Tdap,and Td Vaccines (2 - Td or Tdap) 02/08/2031 02/08/2021 RSV Immunization Adult Patients (1 - 1-dose 75+ series) 2058 HIV Screening Completed 05/14/2022 HIB Vaccines Aged [...] Name Priority Date/Time Associated Diagnosis Comments HPV WITH REFLEX GENOTYPE Routine 05/20/2025 12:00 PM EDT Encounter for gynecological examination (general) (routine) without abnormal findings LIPID PANEL Routine 07/15/2023 HIV SCREENING Routine 05/14/2022 from Last 3 Months or Most Recently Relevant to Health Maintenance Results * (ABNORMAL) HPV with reflex genotype (05/20/2025 12:00 PM EDT) HPV Positive( A) Negative LAB MICROBIOLOGY METHOD 05/27/2025 5:23 PM EDT [facility] Brushing/Spatula Cervix uteri structure / Unknown 05/20/2025 12:00 PM EDT 05/25/2025 1:41 PM EDT us Gilmer Pimentel MD LAB MOLECULAR DIAGNOSTICS LEN WINTERS Final Result [facility] [address] [place] [address], [place] [phone] * (ABNORMAL) Lipid panel (07/15/2023) LDL/HDL Ratio 7(A) 0 - 4 Triglycerides 356(A) 0 - 150 mg/dL Cholesterol 285(A) 0 - 200 mg/dL HDL 41 >=40 mg/dL LDL Cholesterol 173(A) 0 - 100 mg/dL Blood Venous blood specimen / Unknown Historical Provider LAB BLOOD ORDERABLES Caroline l Result * HIV Screening (05/14/2022) HIV Screening abstracted Historical Provider HEALTH MAINTENANCE Final Result from Last 3 Months or Most Recently Relevant to Health Maintenance Insurance [facility] [employer] PLANS Care Teams Licensed And Certified Midwife Relationship Specialty Start Date End Date Candi Galindo MD [address] [place] [phone] PCP - General Internal Medicine 08/18/21
[2025-08-24 11:54] LABS: White Blood Count 7.6 X10*3/uL (4.8-10.8)
[2025-08-24 11:55] LABS: Hematocrit 45.9 % (37.0-47.0); Hemoglobin 14.8 g/dl (12.0-16.0); Imm Gran Abs Auto 0.01 X10*3/uL (0.00-0.03); Imm Gran Pct Auto 0.1 % (0.0-0.4); Lymphocytes Absolute Auto 2.6 X10*3/uL (1.2-4.9); Mean Corpuscular HGB Conc 32.2 g/dl (31.0-35.0); Mean Corpuscular Hemoglobin 29.5 pg (27.0-33.0); Mean Corpuscular Volume 91.6 fL (80.0-98.0); NRBC Abs Auto 0.000 X10*3/uL (0.0-0.012); NRBC Pct Auto 0.0 /100WBC (0.0-0.2); Platelet Count 317 X10*3/uL (160-400); Red Blood Count 5.01 X10*6/uL (4.20-5.50)
[2025-08-24 12:26] LABS: Total Hemoglobin (HGBA1C) 3757.3762 umol/L
[2025-08-24 12:52] LABS: Folate 10.5 ng/mL (> or = 4.0); Vitamin B12 401 pg/mL (200-900)
[2025-08-24 13:33] LABS: Alanine Aminotransferase 95 U/L (0-31); Albumin Level 4.7 g/dL (3.5-5.0); Alkaline Phosphatase 109 U/L (39-117); Anion Gap 12 (12-20); Aspartate Amino Transferase 62 U/L (5-31); Blood Urea Nitrogen 12 mg/dL (9-16); Calcium 9.5 mg/dL (8.4-10.2); Carbon Dioxide 24 mmol/L (22-29); Chloride 108 mmol/L (96-108); Cholesterol 259 mg/dL (<200); Estimated Glomerular Filt Rate > 60; HDL Cholesterol 49 mg/dL (>40); Iron 97 mcg/dL (30-160); Percent Iron Saturation 29 % (15-50); Potassium 4.3 mmol/L (3.3-5.1); Sodium 140 mmol/L (135-145); Total Iron Binding Capacity 329 mcg/dL (228-428); Total Protein 7.9 g/dL (6.5-8.0); Triglycerides 294 mg/dL (<150); Unsaturated Iron Binding 232 ug/dL
[2025-08-24 13:48] LABS: Ferritin 313 ng/mL (10-250); Thyroid Stimulating Hormone 1.37 uIU/mL (0.32-4.0)
== END 2025-08-24 10:30 | disposition home or self-care (01) ==
LOC: HO.LAB 10:29
PROVIDERS: Visit Provider Surgery
DX: E66.01 Morbid (severe) obesity due to excess calories (principal); E11.9 Type 2 diabetes mellitus without complications; E28.2 Polycystic ovarian syndrome; E78.5 Hyperlipidemia, unspecified; Z68.37 Body mass index [BMI] 37.0-37.9, adult
CPT/HCPCS: 36415; 71046; 80053; 80061; 82306; 82607; 82728; 82746; 83036; 83525; 83540; 84425; 84443; 84590; 84630; 85025; 86140; 93005

== ENCOUNTER → 2025-08-24 10:46 | Outpatient (BNV) | payer OTHER, SELFPAY | PROVIDERS: Visit Provider Internal Medicine | DX: E66.9 Obesity, unspecified (principal); Z68.37 Body mass index [BMI] 37.0-37.9, adult | CPT/HCPCS: 93010 ==

== ENCOUNTER → 2025-08-24 11:06 | Outpatient (BNV) | payer OTHER, SELFPAY | PROVIDERS: Visit Provider Radiology Diagnostic Radiology | DX: E66.9 Obesity, unspecified (principal) | CPT/HCPCS: 71046 ==

== ENCOUNTER 2025-09-06 12:53 | Outpatient (AMB) | payer OTHER, SELFPAY ==
--- OUTSIDE RECORDS SUMMARY | 2025-09-06 12:55 | XMS_ITS | Encounter Summary ---
Author Organization [facility] Address [address] [place] [address] Care Team Providers Care Fitness Coach Name Role Phone Candi Galindo MD Primary Care Provider [phone] Encounter Details Date Type Department Care Team (Latest Contact Info) Description 05/03/2025 Lab Requisition [facility] - Main Lab [address] [facility] [place] [phone] Gilmer Pimentel MD [address] [facility] [address] [place] [phone] Encounter for screening for infections with a predominantly sexual mode of transmission; Acute vaginitis Social History Tobacco Use Types Packs/Day Years Used Date Smoking Tobacco: Every Day Cigarettes 0.3 29.8 Started: 11/25/1995 Smokeless Tobacco: Never Alcohol Use [...] vaginalis Negative Negative 05/04/2025 9:30 AM EDT [facility] Gardnerella vaginalis Positive(A) Negative 05/04/2025 9:30 AM EDT [facility] Carissa Species Negative Negative 9:30 AM EDT [facility] Swab Vaginal structure / Unknown 05/03/2025 05/03/2025 6:10 PM EDT us Gilmer Pimentel MD LAB MICROBIOLOGY - GENERAL ORD ERABLES Final Result [facility] [address] [place] [address], [place] [phone] * Chlamydia trachomatis and Neisseria gonorrhoeae molecular study (05/03/2025 12:00 AM EDT) Neisseria gonorrhoeae PCR Negative Negative LAB MOLECULAR DIAGNOSTICS METHOD 05/04/2025 9:19 AM EDT [facility] Chlamydia trachomatis PCR Negative Negative LAB MOLECULAR DIAGNOSTICS METHOD 05/04/2025 9:19 AM EDT [facility] Swab Cervix uteri structure / Unknown 05/03/2025 05/03/2025 6:10 PM EDT us Gilmer Pimentel MD LAB MICROBIOLOGY - GENERAL ORD ERABLES Final Result [facility] [address] [place] [address], [place] [phone] documented in this encounter Visit Diagnoses Diagnosis Encounter for screening for infections with a predominantly sexual mode of transmission Acute vaginitis Unspecified vaginitis and vulvovaginitis documented in this encounter Care Teams Fitness Coach Relationship Specialty Start Date End Date Candi Galindo MD [address] [place] [phone] PCP - General Internal Medicine 08/18/21 documented as of this encounter
--- OUTSIDE RECORDS SUMMARY | 2025-09-06 12:55 | XMS_ITS | Encounter Summary ---
Author Organization [facility] Address [address] [place] [address] Care Team Providers Care Sports Apparel Internship Name Role Phone Candi Galindo MD Primary Care Provider Encounter Details Date Type Department Care Team (Latest Contact Info) Description 05/21/2025 Lab Requisition [facility] - Main Lab [address] [place] [phone] Gilmer Piemntel MD [address] [phone] Encounter for gynecological examination (general) [...] LEN WINTERS Final Result Performing Organization Address City/[facility]/ZIP Co de Phone Number [facility] [address] [place] [address], [place] [phone] * (ABNORMAL) HPV with reflex genotype (05/20/2025 12:00 PM EDT) HPV Positive( A) Negative LAB MICROBIOLOGY METHOD 05/27/2025 5:23 PM EDT [facility] Brushing/Spatula Cervix uteri structure / Unknown 05/20/2025 12:00 PM EDT 05/25/2025 1:41 PM EDT us Gilmer Pimentel MD LAB MOLECULAR DIAGNOSTICS LEN WINTERS Final Result [facility] [address] [place] [address], [place] [phone] * (ABNORMAL) Pap smear (05/20/2025 12:00 PM [...] screening system. Technical cytopathology services provided by [facility], at [address] [place] [id number] (CLIA # [id number]/George Marie MD, Automatic Dispenser Mechanic.) 05/25/2025 1:41 PM EDT [facility] Console Pap Interpretation Reported 05/25/2025 1:41 PM EDT [facility] Brushing/Spatula Cervix uteri structure / Unknown 05/20/2025 12:00 PM EDT 05/21/2025 6:38 AM EDT us Gilmer Pimentel MD LAB CYTOLOGY ORDERABLES Final Result [facility] [address] [place] [address], documented in this encounter Visit Diagnoses Diagnosis Encounter for gynecological examination (general) (routine) without abnormal findings documented in this encounter Care Teams Sports Apparel Internship Relationship Specialty Start Date End Date Candi Galindo MD [address] [place] [phone] PCP - General Internal Medicine 08/18/21 documented as of this encounter
--- OUTSIDE RECORDS SUMMARY | 2025-09-06 12:55 | XMS_ITS | Clinical Summary ---
Author Organization [address] Address [address] [place] [phone] Phone Care Team Providers Care Flask Cleaner Name Role Phone Candi Galindo MD Primary Care Provider [phone] Allergies No known active allergies Medications cetirizine [...] Surgery Date Site/Laterality Comments HERNIA REPAIR PROCEDURE: [place] REPAIR FIRST ABDOMINAL WALL HERNIA HYSTERECTOMY PROCEDURE: HISTORICAL HYSTERECTOMY SECTION 1998 and 2002 PROCEDURE: [place] DELIVERY ONLY Medical History Medical History Date [...] LAB MICROBIOLOGY METHOD 05/27/2025 5:23 PM EDT [facility] Brushing/Spatula Cervix uteri structure / Unknown 05/20/2025 12:00 PM EDT 05/25/2025 1:41 PM EDT us Gilmer Pimentel MD LAB MOLECULAR DIAGNOSTICS LEN WINTERS Final Result [facility] [address] [place] [address], [place] [phone] * (ABNORMAL) Lipid panel (07/15/2023) LDL/HDL Ratio [...] Most Recently Relevant to Health Maintenance Insurance [facility] [employer] Care Teams Flask Cleaner Relationship Specialty Start Date End Date Candi Galindo MD [address] [place] [address] PCP - General Internal Medicine 08/18/21
[2025-09-06 13:02] VITALS: BP 116/84; PULSE 88; TEMP 36.7; O2SAT 99; BMI 36.3
--- NOTE | 2025-09-06 13:02 | AM.OFFWIN_ITS ---
Intake Vital Signs 09/06/25 13:02 Height 4 ft 11.5 in Weight 183 lb BMI 36.3 BP 116/84 Blood Pressure Location Lt brachial Position Sitting Pulse 88 Pulse Source Pulse Oximeter Temp 98.0 F Temp Source Oral Pulse Oximetry (%) 99 Oxygen Delivery Method Room Air Intake Visit Reasons: EP-lt inner thigh rash Intake Note: pt presents with a rash to left outer thigh, states a little sensitive to touch x2 days Patient Tobacco Use Status: Current everyday Tobacco user Allergies No Known Allergies Allergy (Verified 09/06/25 13:04) Do you need a note to return to daycare/school/sports/work: No HPI HPI Comments History of Present Illness Details History - The patient is a 39-year-old female pr esenting with a rash characterized by burning and itching sensations. - The rash began with small, pimple-like lesions that increased from three to six in number. - The rash is localized to one area and does not involve joint pain or other systemic symptoms. - The patient applied triple antibiotic ointment, which provided some relief. - The rash appears to improve after show ering but worsens again. - Recent vaccinations include HPV, COVID -19, and influenza, but no new clothing or products have been used. - She denies fever, chills, discharge, j oint pain, or bug bites. Physical Exam General: Cooperative, healthy appearing, comfortable, no acute distress and well developed Orientation: Patient oriented x3 Limitations: No limitations Mouth: normal, moist oral mucosa Neck: Normal visual inspection and Yes full ROM Respiratory: Normal respiratory effort and able to speak in complete sentences. Clear to auscultation bilaterally. No w/r/r noted. Cardiovascular: RRR, no m/r/g noted. Normal S1 and S2 Skin: Small erythematous non-tender raised papules on the left lateral hip. No discharge noted. Patient was informed and verbally consented to the use of an ambient scribe for clinic note documentation during this visit [facility] Medical History (Updated 08/20/25 @ 12:45 by Deandre Barron MD) Hyperlipidemia Non-insulin dependent type 2 diabetes mellitus BMI 37.0-37.9, adult Obesity Surgical History (Updated 08/16/25 @ 11:36 by Hannah Vázquez CMA) H/O midurethral sling procedure H/O colonoscopy H/O LEEP History of total abdominal hysterectomy Previous section H/O hernia repair Family History Father Hyperlipidemia Mother HIV (human immunodeficiency virus infection) Diabetes Daughter No problems noted. Daughter No problems noted. Son No problems noted. 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 Current occupational exposures/hazards: No Cognitive needs: No Hearing needs: No Vision needs: No Review of Systems Const All systems reviewed & are unremarkable except as noted in HPI and below Physical Exam Vital Signs: Last Vital Signs Temp 98.0 F 09/06/25 13:02 Pulse 88 09/06/25 13:02 BP 116/84 09/06/25 13:02 Pulse Ox 99 09/06/25 13:02 Oxygen Delivery Method Room Air 09/06/25 13:02 BMI result Body Mass Index 36.3 Assessment & Plan Assessment & Plan (1) Rash: Code(s): R21 - Rash and other nonspecific skin eruption Plan Most likely contact dermatitis vs allergic reaction vs bug bite unlikely shingles Plan - Prescribe a steroid cream for the rash to reduce inflammation and itching. - Recommend the use of antihistamines such as loratadine or cetirizine for itching relief. - Advise monitoring the rash for any changes or worsening symptoms, such as fever or chills, and to report back if these occur. Medications: New betamethasone dipropionate 0.05% 1 appl topical DAILY PRN 45 grams 0RF skin irritation 7 days Coding Level of Care Code Est Pt Level 3 (63157) Diagnoses Rash R21
== END 2025-09-06 14:04 | disposition home or self-care (01) ==
PROVIDERS: PCP Internal Medicine; Visit Provider Physician Assistant Medical
DX: R21 Rash and other nonspecific skin eruption (principal)

== ENCOUNTER → 2025-09-06 12:53 | Outpatient (BNVA) | payer OTHER, SELFPAY | PROVIDERS: PCP Internal Medicine; Visit Provider Physician Assistant Medical | DX: R21 Rash and other nonspecific skin eruption (principal) | CPT/HCPCS: 99212 ==

== ENCOUNTER 2025-09-15 11:08 | Outpatient (AMB) | payer OTHER, SELFPAY ==
--- NOTE | 2025-09-15 11:15 | A.OFFWM_ITS ---
Intake Intake Visit Reasons: OV BH Intake Allergies No Known Allergies Allergy (Verified 09/06/25 13:04) PFSH Medical History (Updated 08/20/25 @ 12:45 by Deandre Barron MD) Hyperlipidemia Non-insulin dependent type 2 diabetes mellitus BMI 37.0-37.9, adult Obesity Surgical History (Updated 08/16/25 @ 11:36 by Hannah Vázquez CMA) H/O midurethral sling procedure H/O colonoscopy H/O LEEP History of total abdominal hysterectomy Previous section H/O hernia repair Family History Father Hyperlipidemia Mother HIV (human immunodeficiency virus infection) Diabetes Daughter No problems noted. Daughter No problems noted. Son No problems noted. 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 Presenting Concerns Referral Source WMp-Provider Reason for referral Completion of behavioral health assessment as part of process for weight-loss surgery. Precipitating Event Obesity. Living Situation Current Living Situation Own At risk of losing current housing? No Satisfied with current living situation? Yes Comments Pt lives with her partner and 2 kids. Food/Weight/Diet Expectations of change Initial goal is to lose 10% of her weight before surgery, which is about 18lbs. Ultimate weight goal: 168lbs before surgery. Pt reports her most recent weight was 181Lbs as of Saturday09/13/2025. PT is implementing the following: Current meal plan: 2 shakes, 2.5 bars and1 meal at day (8FT/8FT) Exercise plan: 300cal at day. Elliptical/rower. Gym membership. Scale: yes. Communication w/ provider: last text was about 1 month ago. Social History Family history and relationship Pt is in a relationship 3 years ago. PT has 2 adult kids, they are 26 and 21 and a 5 year old adopted boy. Mother when she was 16, her father is alive. On her mother's side she has 4 siblings, and 2 on her father's side. She is the only child of he mom and dad. Pt reports Parental/Familial silviculture teacher obligations 5 year old son. Developmental history and status Never diagnosed with learning disabilities, but she suspects she has ADD or dyslexia. Social support boyfriend, daughters, a few friends, her son's uncle. Community support PCP Hoahaoism/Spirituality None Cultural/Ethnic information . Parents from [place]. Legal Involvement and History Current or historical involvement with the legal system? None reported. Education Highest grade completed GED. 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 Preferred learning style Visual Currently enrolled in educational program? No Interested in further educational program? 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 No Meaningful activities Play pool. Financial Situation Describe current financial situation Comfortable Financial assistance? None Service Service? No Mental Health and Addiction Treatment Current/Past substance abuse? No Comments Alcohol: 3x week. 3-5 drinks. Cigarettes/Tobacco: 5 at day, 10 when drinking. Cannabis/Edibles: None. Current/Past addictive behavior concerns? No Psychiatric history The patient attended couples counseling with her partner around 2004 and participated in individual therapy for approximately one year in 2020 for additional support during a difficult period. She is not currently engaged in any mental health services. The patient denies any history of mental health crises, inpatient psychiatric care, suicidal ideation, self-harm, or harm to others. Medical and Physical Health Summary Additional Medical History not covered in history None aditional Sexual History concerns None reported. Physical exam in the last year? Yes Pain Screening Current pain? No Pain in the last few months? Yes Comments Low back pain, sees a chiropractor. Medications Is the patient compliant with medications? Yes Does the patient have King Guardian in place? Not applicable Does the patient use complimentary health approaches? Yes (chiropractor.) Questionnaires PHQ-9 Over the last 2 weeks, how often have you been bothered by any of the following problems? 1. Little interest or pleasure in doing things: several days 2. Feeling down, depressed, or hopeless: not at all 3. Trouble falling or staying asleep, or sleeping too much: several days 4. Feeling tired or having little energy: several days 5. Poor appetite or overeating: several days 6. Feeling bad about yourself - or that you are a failure or have let yourself or your family down: not at all 7. Trouble concentrating on things, such as reading the newspaper or watching television: several days 8. Moving or speaking so slowly that other people could have noticed. Or the opposite - being so fidgety or restless that you have been moving around a lot more than usual: not at all 9. Thoughts that you would be better off or of hurting yourself in some way: not at all Total score: 5 Depression Screening Interpretation: Positive (From new PT pack. New one will be administered at next visit.) Depression Screening Done: Yes Source: Developed by Drs. Constantino Cazares, Merary Renteria, Moshe Oreilly and colleagues, with an educational chalo from [employer]. Binge Eating Scale Group 1 A. I don't feel self-conscious about my wt. or body size when I'm with others. B. I feel concerned about how I look to others, but it normally does not make me fell disappointed with myself C. I do get self-conscious about my appearance and wt. which makes me feel disappointed in myself. D. I feel very self-conscious about my wt. and frequently I feel intense shame and disgust for myself. I try to avoid social contacts because of my self- consciousness. Response Group 1: B Group 2 A. I don't have any difficulty eating slowly in the proper manner. B. Although I seem to gobble down foods, I don't end up feeling stuffed because of eating to much. C. At times, I tend to eat quickly and then, I feel uncomfortably full afterwards. D. I have the habit of bolting down my food, without really chewing it. When this happens I usually feel uncomfortably stuffed because I've eaten to much. Response Group 2: A Group 3 A. I feel capable to control my eating urges when I want to. B. I feel like I have failed to control my eating more than the average person. C. I feel utterly helpless when it comes to feeling in control of my eating urges. D. Because I feel so helpless about controlling my eating I have become very desperate about trying to get control. Response Group 3: A Group 4 A. I don't have the habit of eating when I'm bored. B. I sometimes eat when I'm bored, but often I'm able to get busy and get my mind off food. C. I have a regular habit of eating when I'm bored, but occasionally, I can use some other activity to get my mind off eating. D. I have a strong habit of eating when I'm bored. Nothing seems to help me breath the habit. Response Group 4: A Group 5 A. I'm usually physically hungry when I eat something. B. Occasionally, I eat something on impulse even though I really am not hungry. C. I have the regular habit of eating foods, that I might not really enjoy, to satisfy a hungry feeling even though physically, I don't need the food. D. Although I'm not physically hungry, I get a hungry feeling in my mouth that only seems to be satisfied when I eat a food, like sandwich, that fills my mouth. Sometimes, when I eat the food to satisfy my mouth hunger, I then spit the food out so I won't gain weight. Response Group 5: B Group 6 A. I don't feel any guilt or self-hate after I overeat. B. After I overeat, occasionally I feel guilt or self-hate. C. Almost all the time I experience strong guilt or self-hate after I overeat. Response Group 6: B Group 7 A. I don't lose total control of my eating when dieting even after periods when I overeat. B. Sometimes when I eat a forbidden food on a diet, I feel like I blew it and eat even more. C. Frequently, I have the habit of saying to myself, I've blown it now, why not go all the way, when I overeat on a diet. When that happens I eat more. D. I have a regular habit of starting a strict diets for myself but I break the diets by going on an eating binge. My life seems to be either a feast or famine. Response Group 7: A Group 8 A. I rarely eat so much food that I feel uncomfortably stuffed afterwards. B. Usually about once a month, I each such a quantity of food, I end up feeling very stuffed. C. I have regular periods during the month when I eat large amounts of food, either at mealtime or at snacks. D. I eat so much food that I regularly feel quite uncomfortable after eating and sometimes a bit nauseous. Response Group 8: C Group 9 A. My level of calorie intake does not go up very high or go down very low on a regular basis. B. Sometimes after I overeat, I will try to reduce my caloric intake to almost nothing to compensate for the excess calories I've eaten. C. I have a regular habit of overeating during the night. It seems that my routine is not to be hungry in the morning but overeat in the evening. D. In my adult years, I have had week-long periods where I practically starve myself. This follows periods when I overeat. It seems I live a life of either feast or famine. Response Group 9: A Group 10 A. I usually am able to stop eating when I want to. I know when enough is enough. B. Every so often, I experience a compulsion to eat which I can't seem to control. C. Frequently, I experience strong urges to eat which I seem unable to control, but at other times I can control my eating urges. D. I feel incapable of controlling urges to eat. I have a fear of not being able to stop eating voluntarily. Response Group 10: A Group 11 A. I don't have any problem stopping eating when I feel full. B. I usually can stop eating when I feel full but occasionally overeat leaving me feeling uncomfortably stuffed. C. I have a problem stopping eating once I start and usually I feel uncomfortably stuffed after I eat a meal. D. Because I have a problem not being able to stop eating when I want, I sometimes have to induce vomiting to relieve my stuffed feeling. Response Group 11: B Group 12 A. I seem to eat just as much when I'm with others, Family social gatherings as when I'm by myself. B. Sometimes, when I'm with other persons, I don't eat as much as I want to eat because I'm self-conscious about my eating. C. Frequently, I eat only a small amount of food when others are present, because I'm very embarrassed about my eating. D. I feel so ashamed about overeating that I pick times to overeat when I know no one will see me. I feel like a closet eater. Response Group 12: A Group 13 A. I eat three meals a day with only an occasional between meal snack. B. I eat 3 meals a day, but I also normally snack between meals. C. When I am snacking heavily, I get in the habit of skipping regular meals. D. There are regular periods when I seem to be continually eating, with no planned meals. Response Group 13: D Group 14 A. I don't think much about trying to control unwanted eating urges. B. At least some of the time, I feel my thoughts are pre-occupied with trying to control my eating urges. C. I feel that frequently I spend much time thinking about how much I ate or about trying not to eat anymore. D. It seems to me that most of my waking hours are pre-occupied by thoughts about eating or not eating. I feel like I'm constantly struggling not to eat. Response Group 14: B Group 15 A. I don't think about food a great deal. B. I have strong craving for food but they last only for brief periods of time. C. I have days when I can't seem to think about anything else but food. D. Most of my days seem to be pre-occupied with thoughts about food. I feel like I live to eat. Response Group 15: B Group 16 A. I usually know whether or not I'm physically hungry. I take the right portion of food to satisfy me. B. Occasionally, I feel uncertain about knowing whether or not I'm physically hungry. A these times it's hard to know how much food I should take to satisfy me. C. Even though I might know how many calories I should eat, I don't have any idea what is a normal amount of food for me. Response Group 16: B Binge Eating Score: 12 Score less than 17 Minimal Risk Score between 18-26 Moderate Risk Score between 27-46 High Risk Assessment & Plan Assessment & Plan (1) Adjustment disorder: Code(s): F43.20 - Adjustment disorder, unspecified Qualifiers: Adjustment disorder type: unspecified type Qualified Code(s): F43.20 - Adjustment disorder, unspecified (2) Pre-bariatric surgery psychological evaluation: Code(s): Z71.89 - Other specified counseling Plan The patient was not cleared today as the assessment was not completed. The patient will return in 2-4 weeks to continue the evaluation. Next appointment: 09/28/2025 at 2pm, video Coding Level of Care Code New Pt Tele Psy Diag Eval (33135) Patient Type New Diagnoses Adjustment disorder, unspecified type F43.20 Adjustment disorder type: unspecified type Pre-bariatric surgery psychological evaluation Z71.89 Time Spent (min) 55 Comment Start time: 11:15, end time: 12:10pm.
== END 2025-09-15 12:08 | disposition home or self-care (01) ==
LOC: HO.HBST 11:08
PROVIDERS: PCP Internal Medicine; Visit Provider Counselor Mental Health
DX: F43.20 Adjustment disorder, unspecified (principal); Z71.89 Other specified counseling
CPT/HCPCS: 90791

== ENCOUNTER 2025-09-30 13:18 | Outpatient (AMB) | payer OTHER, SELFPAY ==
[2025-09-30 13:28] VITALS: BP 118/70; PULSE 84; TEMP 36.8; O2SAT 94; BMI 36.5
--- NOTE | 2025-09-30 13:28 | MHC.OFFWIV ---
Intake Vital Signs 09/30/25 13:28 Height 4 ft 11.5 in Weight 184 lb BMI 36.5 BP 118/70 Blood Pressure Location Rt brachial Position Sitting Pulse 84 Pulse Source Pulse Oximeter Temp 98.2 F Temp Source Oral Pulse Oximetry (%) 94 Oxygen Delivery Method Room Air Intake Visit Reasons: ep sob cough congestion Intake Note: pt presents with chest congestion and coughing with chest discomfort/burning and SOB for 4 days after visiting a client at their house with pets in home also notes same s/s last week when visiting the same client at their home, pt notes throat pain yesterday that has eased up today Patient Tobacco Use Status: Current everyday Tobacco user Allergies No Known Allergies Allergy (Verified 09/30/25 13:30) Do you need a note to return to daycare/school/sports/work: Yes HPI HPI Comments History of Present Illness Details History - The patient is a 39-year-old female presenting with symptoms of shortness of breath, coughing, and congestion. - Symptoms began after exposure to multiple cats and a dog during a home visit on Saturday. - Initially she started with a sore throat which has resolved, but no has a constant cough, congestion, and some wheezing. - No prior asthma history, but current symptoms suggest asthma-like condition. - She denies fever or ear pain, but has a runny nose and productive cough present. - Currently using Mucinex for symptom relief. - She denies chest pain, SOB, abd pain, n/v/d, or sick contacts. Physical Exam General: Cooperative, healthy appearing, comfortable and no acute distress Orientation/consciousness: Patient oriented x3 Limitations: No limitations Head: Normal to inspection Ears: Hearing grossly normal bilaterally, external ears normal, fluid in the ear noted Nose: Normal external nose present, normal nares present, and nasal congestion present. Face and sinus: Sinuses nontender to palpation. Mouth: Normal oral and palatal mucosa present and moist mucous membranes noted. Throat: Tonsils normal. Uvula is midline. Posterior oropharynx with erythema and no exudates. Eyes: Appearance normal, both eyes and all related structures Neck: Normal visual inspection, full ROM. No lymphadenopathy noted. Respiratory: Wheezing noted, clear to auscultation bilaterally. Normal respiratory effort, able to speak in complete sentences. No respiratory distress, not tachypneic, no tripod positioning and no use of accessory muscles. Cardiovascular: Regular rate and rhythm. Normal S1 and S2 Skin: No rashes or lesions noted Patient was informed and verbally consented to the use of an ambient scribe for clinic note documentation during this visit [facility] Medical History (Updated 08/20/25 @ 12:45 by Deandre Barron MD) Hyperlipidemia Non-insulin dependent type 2 diabetes mellitus BMI 37.0-37.9, adult Obesity Surgical History (Updated 08/16/25 @ 11:36 by Hannah Vázquez CMA) H/O midurethral sling procedure H/O colonoscopy H/O LEEP History of total abdominal hysterectomy Previous section H/O hernia repair Family History Father Hyperlipidemia Mother HIV (human immunodeficiency virus infection) Diabetes Daughter No problems noted. Daughter No problems noted. Son No problems noted. 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 Current occupational exposures/hazards: No Cognitive needs: No Hearing needs: No Vision needs: No Review of Systems Const All systems reviewed & are unremarkable except as noted in HPI and below Physical Exam Vital Signs: Last Vital Signs Temp 98.2 F 09/30/25 13:28 Pulse 84 09/30/25 13:28 BP 118/70 09/30/25 13:28 Pulse Ox 94 09/30/25 13:28 Oxygen Delivery Method Room Air 09/30/25 13:28 BMI result Body Mass Index 36.5 Assessment & Plan Assessment & Plan (1) URI with cough and congestion: Code(s): J06.9 - Acute upper respiratory infection, unspecified Plan Most likely URI vs asthma exacerbation vs covid vs RSV vs flu vs viral illness vs allergic rhinitis plan - Prescribed prednisone and an inhaler. - Swab test to exclude other infections. - Decongestant prescribed for nasal congestion. - Cough medicine provided for symptom relief. - Use albuterol inhaler as needed for cough or wheezing - tylenol or motrin as needed - will call with results - follow up if no better with PCP Orders: Orders SARS-CoV2/FLU/RSV Today R09.89 - Other specified symptoms and signs involving the circulatory and respiratory systems Medications: New fluticasone propionate 50 mcg/actuation administer into each nostril 1 spray intranasal Q12H 16 grams 0RF cetirizine-pseudoephedrine 5-120 mg ER 1 tab PO BID 14 tabs 0RF 7 days prednisone 40 mg (2 x 20 mg) PO DAILY 10 tabs 0RF 5 days albuterol sulfate 90 mcg/actuation 2 puffs inhalation Q6H PRN 8.5 grams 0RF shortness of breath or wheezing or cough benzonatate 100 mg PO bid-tid PRN 21 caps 0RF Cough 7 days Coding Level of Care Code Est Pt Level 3 (67687) Diagnoses URI with cough and congestion J06.9
== END 2025-09-30 14:40 | disposition home or self-care (01) ==
PROVIDERS: PCP Internal Medicine; Visit Provider Physician Assistant Medical
DX: J06.9 Acute upper respiratory infection, unspecified (principal)

== ENCOUNTER 2025-09-30 13:18 | Outpatient (REF) | payer OTHER, SELFPAY ==
--- OUTSIDE RECORDS SUMMARY | 2025-09-30 18:33 | XMS_ITS | Encounter Summary ---
Author Organization [facility] Address [address] [place] [address] Care Team Providers Care Public Records Researcher Name Role Phone Candi Galindo MD Primary Care Provider [phone] Encounter Details Date Type Department Care Team (Latest Contact Info) Description 05/21/2025 Lab Requisition [facility] - Main Lab [address] [facility] [place] [phone] Gilmer Pimentel MD [address] [address] Encounter for gynecological examination (general) [...] LAB MICROBIOLOGY METHOD 06/01/2025 1:57 PM EDT [facility] LAB HPV Type 18/45 Negative Negative LAB MICROBIOLOGY METHOD 06/01/2025 1:57 PM EDT [facility] HPV Type 16,18, and others Valid LAB MICROBIOLOGY METHOD 06/01/2025 1:57 PM EDT [facility] Brushing/Spatula Cervix uteri structure / Unknown 05/20/2025 12:00 PM EDT 05/25/2025 1:41 PM EDT us Gilmer Pimentel MD LAB MOLECULAR DIAGNOSTICS [place] [place] Final Result Performing Organization Address City/[facility]/ZIP Co de Phone Number [facility] [address] [place] [address], [place] [phone] * (ABNORMAL) HPV with reflex genotype (05/20/2025 12:00 PM EDT) HPV Positive( A) Negative LAB MICROBIOLOGY METHOD 05/27/2025 5:23 PM EDT [facility] Brushing/Spatula Cervix uteri structure / Unknown 05/20/2025 12:00 PM EDT 05/25/2025 1:41 PM EDT us Gilmer Pimentel MD LAB MOLECULAR DIAGNOSTICS [place] Final Result [facility] [address] [place] [address], [place] [phone] * (ABNORMAL) Pap smear (05/20/2025 12:00 PM EDT) Interpretation Atypical squamous cells of undetermined significance(A) 05/25/2025 1:41 PM EDT [facility] General Categorization Epithelial cell abnormality, see interpretation 05/25/2025 1:41 PM EDT [facility] Specimen Adequacy Satisfactory for evaluation, endocervical/tra nsformation zone component absent 05/25/2025 1:41 PM EDT [facility] Pap Methodology Liquid Based Pap Test 05/25/2025 1:41 PM EDT [facility] Disclaimer The Pap test is a screening test which carries an inherent false negative rate. These test results should be correlated with the patient's clinical findings and history. This Pap test was processed using an automated screening system. Technical cytopathology services provided by [facility], at [address] [place] [id number] (CLIA # [id number]/George Marie MD, Director Fixed Income.) 05/25/2025 1:41 PM EDT [facility] Console Pap Interpretation Reported 05/25/2025 1:41 PM EDT [facility] Brushing/Spatula Cervix uteri structure / Unknown 05/20/2025 12:00 PM EDT 05/21/2025 6:38 AM EDT us Gilmer Pimentel MD LAB CYTOLOGY ORDERABLES Final Result [facility] [address] [place] [address], documented in this encounter Visit Diagnoses Diagnosis Encounter for gynecological examination (general) (routine) without abnormal findings documented in this encounter Care Teams Public Records Researcher Relationship Specialty Start Date End Date Candi Galindo MD [address] [place] [address] PCP - General Internal Medicine 08/18/21 documented as of this encounter
--- OUTSIDE RECORDS SUMMARY | 2025-09-30 18:33 | XMS_ITS | Clinical Summary ---
Author Organization [address] Address [address] [place] [phone] Phone Care Team Providers Care Nutrition Representative Name Role Phone Cadni Galindo MD Primary Care Provider [phone] Allergies No known active allergies Medications cetirizine [...] Surgery Date Site/Laterality Comments HERNIA REPAIR PROCEDURE: NM REPAIR FIRST ABDOMINAL WALL HERNIA HYSTERECTOMY PROCEDURE: HISTORICAL HYSTERECTOMY SECTION 1998 and 2002 PROCEDURE: NM DELIVERY ONLY Medical History Medical History Date [...] Result [facility] [address] [place] [address], [place] [phone] * (ABNORMAL) Lipid panel (07/15/2023) LDL/HDL Ratio [...] Most Recently Relevant to Health Maintenance Insurance [facility] [employer] Care Teams Nutrition Representative Relationship Specialty Start Date End Date Candi Galindo MD [address] [place] [address] PCP - General Internal Medicine 08/18/21
--- OUTSIDE RECORDS SUMMARY | 2025-09-30 18:33 | XMS_ITS | Encounter Summary ---
Author Organization [facility] Address [address] [place] [address] Care Team Providers Care Airset Molder Name Role Phone Candi Galindo MD Primary Care Provider [phone] Encounter Details Date Type Department Care Team (Latest Contact Info) Description 05/03/[address] [facility] - Main Lab 299 [facility] [place] [phone] Gilmer Pimentel MD 299 [facility] [address] [place] [phone] Encounter for screening for infections with a [...] vaginalis Negative Negative 05/04/2025 9:30 AM EDT [facility] Gardnerella vaginalis Positive(A) Negative 05/04/2025 9:30 AM EDT [facility] Carissa Species Negative Negative 9:30 AM EDT [facility] Swab Vaginal structure / Unknown 05/03/2025 05/03/2025 6:10 PM EDT us Gilmer Pimentel MD LAB MICROBIOLOGY - GENERAL ORD ERABLES Final Result [facility] [address] [place] [address], [place] [phone] * Chlamydia trachomatis and Neisseria gonorrhoeae molecular study (05/03/2025 12:00 AM EDT) Neisseria gonorrhoeae PCR Negative Negative LAB MOLECULAR DIAGNOSTICS METHOD 05/04/2025 9:19 AM EDT [facility] Chlamydia trachomatis PCR Negative Negative LAB MOLECULAR DIAGNOSTICS METHOD 05/04/2025 9:19 AM EDT [facility] Swab Cervix uteri structure / Unknown 05/03/2025 05/03/2025 6:10 PM EDT us Gilmer Pimentel MD LAB MICROBIOLOGY - GENERAL ORD ERABLES Final Result [facility] [address] [place] [address], [place] [phone] documented in this encounter Visit Diagnoses Diagnosis Encounter for screening for infections with a predominantly sexual mode of transmission Acute vaginitis Unspecified vaginitis and vulvovaginitis documented in this encounter Care Teams Airset Molder Relationship Specialty Start Date End Date Candi Galindo MD [address] [place] [phone] PCP - General Internal Medicine 08/18/21 documented as of this encounter
[2025-09-30 18:56] LABS: Resp Syncy Virus RNA Qual PCR NEGATIVE (Negative); SARS COV2 PCR INHOUSE NEGATIVE (Negative)
== END 2025-09-30 13:19 | disposition home or self-care (01) ==
LOC: HO.LNP 13:18
PROVIDERS: PCP Internal Medicine; Visit Provider Physician Assistant Medical
DX: R06.02 Shortness of breath (principal); R09.81 Nasal congestion; R05.9 Cough, unspecified; R07.89 Other chest pain; R06.2 Wheezing; F17.210 Nicotine dependence, cigarettes, uncomplicated
CPT/HCPCS: 87637; 99212

== ENCOUNTER 2025-10-04 12:09 | Outpatient (AMB) | payer OTHER, SELFPAY ==
[2025-10-04 12:33] VITALS: BP 108/66; PULSE 83; TEMP 36.6; O2SAT 97; BMI 36.5
--- NOTE | 2025-10-04 12:33 | AM.OFFWIN_ITS ---
Intake Vital Signs 10/04/25 12:33 Height 4 ft 11.5 in Weight 184 lb BMI 36.5 BP 108/66 Blood Pressure Location Lt brachial Position Sitting Pulse 83 Pulse Source Pulse Oximeter Temp 97.9 F Temp Source Oral Pulse Oximetry (%) 97 Oxygen Delivery Method Room Air Intake Visit Reasons: EP Cough, sore throat, phlem, SOB Intake Note: pt presents with green phlegm from productive coughing and sinuses, chest discomfort, dyspnea, throat feels raw Patient Tobacco Use Status: Current everyday Tobacco user Allergies No Known Allergies Allergy (Verified 10/04/25 12:36) Medication List - Last Reconciled 10/04/25 by Myra Mead NP albuterol sulfate 90 mcg/actuation 2 puffs inhalation Q6H PRN atorvastatin (Lipitor) 40 mg PO DAILY 90 days azithromycin 500 mg PO DAILY 3 days benzonatate 100 mg PO bid-tid PRN 7 days cetirizine-pseudoephedrine 5-120 mg ER 1 tab PO BID 7 days coQ10 (ubiquinol) (Qunol Popeye CoQ10) 100 mg PO DAILY empagliflozin (Jardiance) 25 mg PO DAILY fluticasone propionate 50 mcg/actuation 1 spray intranasal Q12H icosapent ethyl 2 grams PO BID prednisone 20 mg PO DAILY thiamine HCl (vitamin B1) 100 mg PO BID Do you need a note to return to daycare/school/sports/work: Yes HPI HPI Comments History of Present Illness Details 39 y/o Female patient presents to the [facility] clinic with c/o shortness of breath, sore throat, and productive cough with sputum for over a week. She was seen on 09/30/25 for similar symptoms and diagnosed with URI and bronchitis. Treated with Prednisone and Benzonatate with minimal relief. Reports worsening of symptoms over the past weekend. Denies fevers, chills, nausea, or vomiting. [facility] Medical History (Updated 10/04/25 @ 13:08 by Myra Mead NP) Cough Hyperlipidemia Non-insulin dependent type 2 diabetes mellitus BMI 37.0-37.9, adult Obesity Surgical History (Updated 08/16/25 @ 11:36 by Hannah Vázquez CMA) H/O midurethral sling procedure H/O colonoscopy H/O LEEP History of total abdominal hysterectomy Previous section H/O hernia repair Family History Father Hyperlipidemia Mother HIV (human immunodeficiency virus infection) Diabetes Daughter No problems noted. Daughter No problems noted. Son No problems noted. 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 Current occupational exposures/hazards: No Cognitive needs: No Hearing needs: No Vision needs: No Review of Systems Const All systems reviewed & are unremarkable except as noted in HPI and below Physical Exam Vital Signs: Last Vital Signs Temp 97.9 F 10/04/25 12:33 Pulse 83 10/04/25 12:33 BP 108/66 10/04/25 12:33 Pulse Ox 97 10/04/25 12:33 Oxygen Delivery Method Room Air 10/04/25 12:33 BMI result Body Mass Index 36.5 Const General: no acute distress Nutritional Appearance: obese Orientation/consciousness: patient oriented x3 HEENT Head: Yes normocephalic Ears: external ears normal General nose exam: Normal external nose present Face and sinus: Yes normal facial exam Mouth: moist mucous membranes Throat: Yes uvula midline Resp Effort & Inspection: normal respiratory effort and Actively coughing Auscultation: no crackles, no rales, rhonchi and wheezes Cardio Heart sounds: S1 normal heart sound present and S2 normal heart sound present Neuro General: patient oriented x3, gait normal and moves all extremities Psych Speech and movement: Normal speech and movement present Assessment & Plan Assessment & Plan (1) Cough: Code(s): R05.9 - Cough, unspecified Qualifiers: Cough type: subacute Qualified Code(s): R05.2 - Subacute cough Plan: Acute bronchitis, worsening. Ordered Azithromycin 500 mg x 3 days. Continue supportive care: rest, fluids, humidifier use May continue Benzonatate PRN for cough Albuterol inhaler PRN for wheezing/SOB Reassess if no improvement in 3?5 days or worsening symptoms (e.g., fever, increased SOB, chest pain) Medications: New prednisone 20 mg PO DAILY 10 tabs 0RF R05.2 - Subacute cough azithromycin 500 mg PO DAILY 3 tabs 0RF 3 days R05.2 - Subacute cough Discontinued betamethasone dipropionate 0.05% Discontinued Reason: Patient Completed Course 1 appl topical DAILY 7 days PRN 45 grams 0RF skin irritation valacyclovir Discontinued Reason: Patient Completed Course 1,000 mg PO Q8H 7 days 21 tabs 0RF prednisone Discontinued Reason: Patient Completed Course 40 mg (2 x 20 mg) PO DAILY 5 days 10 tabs 0RF Coding Level of Care Code Est Pt Level 4 (19428) Diagnoses Subacute cough R05.2 Cough type: subacute Time Spent (min) 20
--- OUTSIDE RECORDS SUMMARY | 2025-10-04 14:29 | XMS_ITS | Encounter Summary ---
Author Organization [facility] Address [address] [place] [address] Care Team Providers Care Corporate Real Estate Manager Name Role Phone Candi Galindo MD Primary Care Provider [phone] Encounter Details Date Type Department Care Team (Latest Contact Info) Description 05/03/2025 Lab Requisition [facility] - Main Lab 299 [facility] [place] [phone] Gilmer Pimentel MD 299 [facility] [address] [place] [phone] Encounter for screening for infections with a predominantly sexual mode of transmission; Acute vaginitis Social History Tobacco Use Types Packs/Day Years Used Date Smoking Tobacco: Every Day Cigarettes 0.3 29.9 Started: 11/25/1995 Smokeless Tobacco: Never Alcohol Use [...] Result [facility] [address] [place] [address], [place] [phone] * Chlamydia trachomatis and Neisseria gonorrhoeae molecular [...] Result [facility] [address] [place] [address], [place] [phone] documented in this encounter Visit Diagnoses Diagnosis Encounter for screening for infections with a predominantly sexual mode of transmission Acute vaginitis Unspecified vaginitis and vulvovaginitis documented in this encounter Care Teams Corporate Real Estate Manager Relationship Specialty Start Date End Date Candi Galindo MD [address] [place] [phone] PCP - General Internal Medicine 08/18/21 documented as of this encounter
--- OUTSIDE RECORDS SUMMARY | 2025-10-04 14:29 | XMS_ITS | Encounter Summary ---
Author Organization [facility] Address [address] [place] [address] Care Team Providers Care Wound/Ostomy Nurse Name Role Phone Candi Galindo MD Primary Care Provider [phone] Encounter Details Date Type Department Care Team (Latest Contact Info) Description 05/21/2025 Lab Requisition [facility] - Main Lab 299 [facility] [place] [phone] Gilmer Pimentel MD [address] [phone] Encounter for gynecological examination (general) [...] LAB MICROBIOLOGY METHOD 06/01/2025 1:57 PM EDT [facility] HPV Type 18/45 Negative Negative LAB MICROBIOLOGY METHOD 06/01/2025 1:57 PM EDT [facility] HPV Type 16,18, and others Valid LAB MICROBIOLOGY METHOD 06/01/2025 1:57 PM EDT [facility] Brushing/Spatula Cervix uteri structure / Unknown 05/20/2025 12:00 PM EDT 05/25/2025 1:41 PM EDT us Gilmer Pimentel MD LAB MOLECULAR DIAGNOSTICS LEN WINTERS Final Result Performing Organization Address City/[facility]/ZIP Co de Phone Number [facility] [address] [place] [address], [place] [phone] * (ABNORMAL) HPV with reflex genotype (05/20/2025 12:00 PM EDT) HPV Positive( A) Negative LAB MICROBIOLOGY METHOD 05/27/2025 5:23 PM EDT [facility] Brushing/Spatula Cervix uteri structure / Unknown 05/20/2025 12:00 PM EDT 05/25/2025 1:41 PM EDT us Gilmer Pimentel MD LAB MOLECULAR DIAGNOSTICS LEN WINTERS Final Result [facility] [address] [place] [address], [place] [phone] * (ABNORMAL) Pap smear (05/20/2025 12:00 PM EDT) Interpretation Atypical squamous cells of undetermined significance(A) 05/25/2025 1:41 PM EDT [facility] General Categorization Epithelial cell abnormality, see interpretation 05/25/2025 1:41 PM EDT [facility] Specimen Adequacy Satisfactory for evaluation, endocervical/tra nsformation zone component absent 05/25/2025 1:41 PM EDT [facility] Pap Methodology Liquid Based Pap Test 05/25/2025 1:41 PM EDT [facility] Disclaimer The Pap test is a screening test which carries an inherent false negative rate. These test results should be correlated with the patient's clinical findings and history. This Pap test was processed using an automated screening system. Technical cytopathology services provided by [facility], at [address] [place] [id number] (CLIA # [id number]/George Marie MD, Preschool Substitute Teacher.) 05/25/2025 1:41 PM EDT [facility] Console Pap Interpretation Reported 05/25/2025 1:41 PM EDT [facility] Brushing/Spatula Cervix uteri structure / Unknown 05/20/2025 12:00 PM EDT 05/21/2025 6:38 AM EDT us Gilmer Pimentel MD LAB CYTOLOGY ORDERABLES Final Result [facility] [address] [place] [address], documented in this encounter Visit Diagnoses Diagnosis Encounter for gynecological examination (general) (routine) without abnormal findings documented in this encounter Care Teams Wound/Ostomy Nurse Relationship Specialty Start Date End Date Candi Galindo MD [address] [place] [phone] PCP - General Internal Medicine 08/18/21 documented as of this encounter
--- OUTSIDE RECORDS SUMMARY | 2025-10-04 14:29 | XMS_ITS | Clinical Summary ---
Author Organization [address] Address [address] [place] [phone] Phone Care Team Providers Care Pouncer Machine Name Role Phone Candi Galindo MD Primary Care Provider [phone] Allergies No known active allergies Medications cetirizine [...] Surgery Date Site/Laterality Comments HERNIA REPAIR PROCEDURE: AL REPAIR FIRST ABDOMINAL WALL HERNIA HYSTERECTOMY PROCEDURE: HISTORICAL HYSTERECTOMY SECTION 1998 and 2002 PROCEDURE: AL DELIVERY ONLY Medical History Medical History Date [...] LAB MICROBIOLOGY METHOD 05/27/2025 5:23 PM EDT [facility] Brushing/Spatula Cervix uteri structure / Unknown 05/20/2025 12:00 PM EDT 05/25/2025 1:41 PM EDT us Gilmer Pimentel MD LAB MOLECULAR DIAGNOSTICS LEN WINTERS Final Result [facility] [address] [place] [address], [place] [phone] * (ABNORMAL) Lipid panel (07/15/2023) LDL/HDL Ratio [...] Most Recently Relevant to Health Maintenance Insurance [facility] [employer] Care Teams Pouncer Machine Relationship Specialty Start Date End Date Candi Galindo MD [address] [place] [phone] PCP - General Internal Medicine 08/18/21
== END 2025-10-04 13:09 | disposition home or self-care (01) ==
PROVIDERS: PCP Internal Medicine; Visit Provider Nurse Practitioner Family
DX: R05.2 Subacute cough (principal)

== ENCOUNTER → 2025-10-04 12:09 | Outpatient (BNVA) | payer OTHER, SELFPAY | PROVIDERS: PCP Internal Medicine; Visit Provider Nurse Practitioner Family | DX: R05.2 Subacute cough (principal); Z79.52 Long term (current) use of systemic steroids; Z79.899 Other long term (current) drug therapy | CPT/HCPCS: 99212 ==